=== PATIENT | male | born 1960 | race Caucasian/White ===

== ENCOUNTER → 2016-11-27 | Outpatient (REF) ==
[~2016-11-27] MED LIST: ALBU17IN2 INH; FLON0.054; No Historical Meds; PAXI20TA3 PO; TRAZ50TA4 PO; VICO5TAB
== END ==
LOC: M LAB 13:02
PROVIDERS: ATTEND Nurse Practitioner Adult Health
DX: Z02.1 Encounter for pre-employment examination (principal)

== ENCOUNTER 2017-02-21 10:50 | Inpatient (IN) | payer OTHER ==
[~2017-02-21] VITALS: Ht 195.6 cm; Wt 90.0 kg
[2017-02-21] MEDS ORDERED: PAXI30TA11 PO (11:22)
[2017-02-21] MEDS ORDERED: WELL100T2 PO (11:22)
[2017-02-21] MEDS ORDERED: NS 1,000 ML IV SCH ×2 (11:22→21:30)
[2017-02-21] MEDS ORDERED: INCR1INH IN (11:22)
[2017-02-21] MEDS ORDERED: BREO1INH3 INH (11:22)
[2017-02-21] MEDS ORDERED: methylPREDNISolone INJ 125 MG/2 ML VIAL (J2930) IV ONE (11:30)
[2017-02-21 11:40] LABS: ABG BASE EXCESS 2.2 (-2.0-2.0); ABG HCO3 29.9 MEQ/L (22.0-26.0); ABG PARTIAL PRESSURE CO2 57.7 mmHg (35.0-45.0); ABG PARTIAL PRESSURE O2 62.8 mmHg (75.0-100.0); ABG STANDARD HCO3 26.3 MEQ/L (22.0-26.0); ABG TOTAL CO2 31.6 MEQ/L (22.0-29.0); ABG pH (ARTERIAL) 7.332 UNITS (7.350-7.450)
[2017-02-21] MEDS: IPRATROPIUM 0.5MG/ALBUTEROL 2.5MG INH SOL UD 3ML (DUONEB)(J7620) NEB PRN ×3 (12:02→12:46)
[2017-02-21 12:03] LABS: BASO % 0.4 % (0.0-1.0); EOS % 0.8 % (0.0-3.0); LARGE UNSTAINED CELL % 2.4 % (0.0-4.0); MEAN CORPUSCULAR HEMOGLOBIN 31.6 pg (27.0-33.0); MEAN CORPUSCULAR HGB CONC 34.2 g/dl (32.0-36.5); MEAN CORPUSCULAR VOLUME 92.4 fl (80.0-96.0); MONO % 10.5 % (0.0-5.0); NEUTROPHILS % 77.9 % (36.0-66.0); PLATELET COUNT, AUTOMATED 283 k/mm3 (150-450); RED CELL DISTRIBUTION WIDTH 13.5 % (11.5-14.5); WHITE BLOOD COUNT 13.6 K/mm3 (4.0-10.0)
[2017-02-21 12:04] LABS: BASO # 0.1 K/mm3 (0.0-0.2); EOS # 0.1 K/mm3 (0.0-0.50); LARGE UNSTAINED CELL # 0.3 K/mm3 (0.0-0.4); LYMPH # 1.1 K/mm3 (1.5-4.5); MONO # 1.4 K/mm3 (0.0-0.8); NEUTROPHILS # 10.6 K/mm3 (1.8-7.7)
--- NOTE | 2017-02-21 12:05 | REP ---
Chest one-view HISTORY: Cough Comparison: 11/05/2010 The lungs are clear. The heart is normal in size. The pulmonary vasculature is normal in appearance. Impression: No acute disease. Signed by Paulino Alvarez MD 02/21/2017 11:58 A
[2017-02-21 12:28] LABS: ANION GAP 5 MEQ/L (8-16); BLOOD UREA NITROGEN 39 MG/DL (7-18); CALCIUM LEVEL 9.4 MG/DL (8.5-10.1); CARBON DIOXIDE LEVEL 34 MEQ/L (21-32); CHLORIDE LEVEL 95 MEQ/L (98-107); CREATININE FOR GFR 0.97 MG/DL (0.70-1.30); GLOMERULAR FILTRATION RATE > 60.0 (>56); GLUCOSE, FASTING 155 MG/DL (70-105); POTASSIUM SERUM 4.4 MEQ/L (3.5-5.1); SODIUM LEVEL 134 MEQ/L (136-145)
[2017-02-21] MEDS ORDERED: ISOVUE-370 76% 100ML VIAL (Q9967) As Ordered ONE (12:59)
[2017-02-21] MEDS ORDERED: ACETAMINOPHEN TAB 650MG DOSE (2X325MG) PO ONE (14:00)
[2017-02-21] MEDS ORDERED: IBUP800T23 PO (15:36)
[2017-02-21] MEDS ORDERED: ACETAMINOPHEN TAB 650MG DOSE (2X325MG) PO PRN (16:15)
--- NOTE | 2017-02-21 16:21 | HPEPDOC ---
General Date of Admission Chief Complaint The patient is a 56-year-old male Presented to the ER with complaints of shortness of breath for the last 4-5 days. History of Present Illness Patient is a 56 year old male with a PMHx of COPD (not on O2), Osteoarthritis and Depression who presented to the ER with SOB x 4-5 days. He notes that he has not had any recent illnesses and has been compliant with his medications. He noticed that over the last 5 days his breathing has worsened from baseline and he gets very short of breath at rest. He reports an increase in sputum production and described it as green without any blood. He reports subjective fevers and chills at home. He has been wheezing continuously and has used his inhaler more frequently without any resolution. He has had COPD exacerbations in the past, almost >1 year ago. He denies any history of intubation. He reports some diarrhea for 1 week, loose / water stools about 2-3 times per day. He denies chest pain, palpitations, abdominal pain, nausea or vomiting, or dysuria. Home Medications Scheduled (Incruse Ellipta) 62.5 Mcg/Inh Inh, 62.5 MCG IN DAILY, (Reported) Bupropion HCl (Wellbutrin Sr) 100 Mg Tab, 100 MG PO BID, (Reported) UNKNOWN IF SR OR NOT, WILL CALL PHARMACY IN THE AM Fluticasone/Vilanterol (Breo Ellipta 200-25 Mcg/INH) 1 Inh Inh, 1 PUFF INH DAILY , (Reported) Paroxetine Hydrochloride (Paxil) 30 Mg Tab, 60 MG PO DAILY, (Reported) Scheduled PRN Albuterol Sulfate (Proventil Hfa) 167 Puff/6.7 Gm Aers, 2 PUFFS INH Q4HP PRN for SHORTNESS OF BREATH, (Reported) Ibuprofen (Ibuprofen) 800 Mg Tab, 800 MG PO BID PRN for PAIN, (Reported) Allergies Coded Allergies: Cat Dander (Unverified Allergy, Unknown, 02/21/17) Cephalosporins (Verified Allergy, Unknown, 01/30/13) Past Medical History Medical History COPD (not on O2), Osteoarthritis and Depression Surgical History Bilateral forearm surgery Right arm surgery Right thumb fracture Right ankle surgery Family History - Non-contributory Social History - Smoker of > 40 years at 1ppd, Social etoh use, Smokes marijuana occasionally - Denies recent travel or sick contacts - Lives in snf - Occupation; unemployed Review of Symptoms Other systems Constitutional: Denies weight loss, change in appetite, or recent trauma Eyes: No visual changes or eye pain Ears, Nose, Throat: Denies nose bleeds, or difficulty swallowing Cardiovascular: Denies chest pain, sweating, or orthopnea Respiratory: Positive cough, wheezing, and shortness of breath GI: Abundio nausea, vomiting, abdominal pain, diarrhea or constipation : Denies pain with urination or frequency Musculoskeletal: Denies joint pain or swelling Neuro / Psych: Denies muscle weakness or sensory loss Skin: No skin rashes noted All other review of systems negative; otherwise stated in history of present illness Vital Signs - Vitals: BP 138/81, HR 108, RR 20, Sat 91%VentiMask, Temp 98.5F - General: Lying in bed, No acute distress, Speaking in full sentences, AAOx3 - HEENT: NC, AT, PERRLA, EOMI - CVS: RRR, +S1S2, - Lungs: Poor inspiratory effort, wheezing positive bilaterally - Abdomen: Soft, Non-distended, Non-tender, + Bowel sounds x 4 - Extremities: + PPx4, No lower extremity edema, No calf tenderness - Neuro: No focal motor or sensory deficit - Skin: No visible rashes Laboratory Data Labs 24H Laboratory Tests 2 02/21/17 11:30: Blood Gas Bicarbonate Standard 26.3H, Arterial Blood pH 7.332L, Arterial Blood Partial Pressure CO2 57.7H, Arterial Blood Partial Pressure O2 62.8L, Arterial Blood Total CO2 31.6H, Arterial Blood HCO3 29.9H, Arterial Blood Base Excess 2.2H, Arterial Blood Oxygen Saturation 90.9L 02/21/17 11:49: White Blood Count 13.6H, Red Blood Count 5.24, Hemoglobin 16.6, Hematocrit 48.5 , Mean Corpuscular Volume 92.4, Mean Corpuscular Hemoglobin 31.6, Mean Corpuscular Hemoglobin Concent 34.2, Red Cell Distribution Width 13.5, Platelet Count 283, Neutrophils (%) (Auto) 77.9H, Lymphocytes (%) (Auto) 8.0L, Monocytes (%) (Auto) 10.5H, Eosinophils (%) (Auto) 0.8, Basophils (%) (Auto) 0.4, Neutrophils # (Auto) 10.6H, Lymphocytes # (Auto) 1.1L, Monocytes # (Auto) 1.4H, Eosinophils # (Auto) 0.1, Basophils # (Auto) 0.1, Large Unclassified Cells % 2.4 , Large Unclassified Cells # 0.3, D-Dimer, Quantitative 870.6H, Anion Gap 5L, Glomerular Filtration Rate > 60.0, Lactic Acid Level 1.1, Blood Urea Nitrogen 39H, Creatinine 0.97, Sodium Level 134L, Potassium Level 4.4, Chloride Level 95L , Carbon Dioxide Level 34H, Calcium Level 9.4, Total Creatine Kinase 247, Creatine Kinase MB 5.7H, Creatine Kinase MB Relative Index 2.30, Troponin I < 0.02, B-Type Natriuretic Peptide 98.6, Thyroid Stimulating Hormone (TSH) 1.120 CBC/BMP Laboratory Tests 02/21/17 11:49 Red Blood Count 5.24, Mean Corpuscular Volume 92.4, Mean Corpuscular Hemoglobin 31.6, Mean Corpuscular Hemoglobin Concent 34.2, Red Cell Distribution Width 13.5 , Neutrophils (%) (Auto) 77.9 H, Lymphocytes (%) (Auto) 8.0 L, Monocytes (%) ( Auto) 10.5 H, Eosinophils (%) (Auto) 0.8, Basophils (%) (Auto) 0.4, Neutrophils # (Auto) 10.6 H, Lymphocytes # (Auto) 1.1 L, Monocytes # (Auto) 1.4 H, Eosinophils # (Auto) 0.1, Basophils # (Auto) 0.1, Calcium Level 9.4, Total Creatine Kinase 247 Microbiology Microbiology 02/21/17 Blood Culture, Received Pending 02/21/17 Blood Culture, Received Pending 02/21/17 Influenza Virus Type A Antigen - Final, Complete 02/21/17 Influenza Virus Type B Antigen - Final, Complete Plan / VTE VTE Prophylaxis Ordered?: Yes Plan Plan Shortness of breath likely 2/2 acute COPD exacerbation - Presented with SOB, and productive cough for 5 days - Physical reveals no respiratory distress, not using accessory muscles, + wheezing bilaterally - WBC elevated, no elevation in lactic acid - ABG with mild CO2 retention, pH of 7.332 - CXR 02/21: no active disease - CTA 02/21: 2.4cm mass in RUL (increased from prior) - Repeat ABG in AM - s/p Solumedrol 125 and Duoneb in ER - c/w Solumedrol, Duoneb, Advair and will add Levaquin Right upper lobe mass possibly 2/2 malignancy - Awaiting official read on CT scan - will need further evaluation Leukocytosis possibly 2/2 infectious etiology, possibly reactive - No elevation in lactic acid - CXR negative - Will check blood cultures, sputum cultures - c/w Levaquin for now Osteoarthritis - c/w Tylenol PRN Depression - c/w home meds Gastrointestinal prophylaxis - Will start protonix DVT prophylaxis - Will start Lovenox LUAN NG MD Feb 21, 2017 16:21
[2017-02-21] MEDS ORDERED: BUPR50TA PO (16:44)
[2017-02-21] MEDS ORDERED: LevoFLOXacin IV 500 MG in APPROPRIATE DILUENT 1 EA IV SCH (18:00)
[2017-02-21 19:09] VITALS: BP 144/90
[2017-02-21] MEDS: IPRATROPIUM 0.5MG/ALBUTEROL 2.5MG INH SOL UD 3ML (DUONEB)(J7620) NEB SCH (20:00)
[2017-02-21] MEDS: ADVAIR DISKUS 250/50 INH PWD INH SCH (20:22)
[2017-02-21] MEDS: PANTOPRAZOLE 40MG TAB (PROTONIX) PO SCH (21:03)
[2017-02-21] MEDS: buPROPion 100 MG TAB PO SCH (21:04)
[2017-02-21] MEDS: ENOXAPARIN 40 MG/0.4 ML SYRINGE (J1650) SC SCH (21:04)
[2017-02-21] MEDS: methylPREDNISolone INJ 125 MG/2 ML VIAL (J2930) IV SCH (21:04)
[2017-02-21 23:58] VITALS: BP 142/89
[2017-02-22] VITALS (7 sets, daily range): BP systolic 118–173; BP diastolic 67–93; O2SAT 92
[2017-02-22] MEDS: IPRATROPIUM 0.5MG/ALBUTEROL 2.5MG INH SOL UD 3ML (DUONEB)(J7620) NEB SCH ×4 (00:39→20:00)
[2017-02-22] MEDS: methylPREDNISolone INJ 125 MG/2 ML VIAL (J2930) IV SCH ×3 (04:30→20:27)
[2017-02-22 05:29] LABS: BASO % 0.2 % (0.0-1.0); EOS % 0.3 % (0.0-3.0); LARGE UNSTAINED CELL # 0.2 K/mm3 (0.0-0.4); LARGE UNSTAINED CELL % 1.7 % (0.0-4.0); LYMPH # 0.8 K/mm3 (1.5-4.5); LYMPH % 7.2 % (24.0-44.0); MEAN CORPUSCULAR HEMOGLOBIN 31.2 pg (27.0-33.0); MEAN CORPUSCULAR HGB CONC 33.7 g/dl (32.0-36.5); MEAN CORPUSCULAR VOLUME 92.7 fl (80.0-96.0); MONO # 0.7 K/mm3 (0.0-0.8); MONO % 5.9 % (0.0-5.0); NEUTROPHILS # 9.8 K/mm3 (1.8-7.7); NEUTROPHILS % 84.8 % (36.0-66.0); PLATELET COUNT, AUTOMATED 306 k/mm3 (150-450); RED CELL DISTRIBUTION WIDTH 13.5 % (11.5-14.5); WHITE BLOOD COUNT 11.6 K/mm3 (4.0-10.0)
[2017-02-22 05:50] LABS: ALBUMIN 3.1 GM/DL (3.2-5.2); ALBUMIN/GLOBULIN RATIO 0.66 (1.00-1.93); ALKALINE PHOSPHATASE 95 U/L (45-117); ALT/SGPT 20 U/L (12-78); ANION GAP 5 MEQ/L (8-16); AST/SGOT 21 U/L (15-37); BILIRUBIN,TOTAL 0.3 MG/DL (0.2-1.0); BLOOD UREA NITROGEN 22 MG/DL (7-18); CALCIUM LEVEL 8.2 MG/DL (8.5-10.1); CARBON DIOXIDE LEVEL 33 MEQ/L (21-32); CHLORIDE LEVEL 96 MEQ/L (98-107); CREATININE FOR GFR 0.61 MG/DL (0.70-1.30); GLOMERULAR FILTRATION RATE > 60.0 (>56); GLUCOSE, FASTING 139 MG/DL (70-105); MAGNESIUM LEVEL 2.4 MG/DL (1.8-2.4); POTASSIUM SERUM 4.4 MEQ/L (3.5-5.1); SODIUM LEVEL 134 MEQ/L (136-145); TOTAL PROTEIN 7.8 GM/DL (6.4-8.2)
--- NOTE | 2017-02-22 06:15 | ECGEPIP ---
Stationary ECG Study [facility] [place] - ED Test Date: 2017-02-21 Pat Name: BILL TORRES Department: Room: - Gender: M Asset Analyst: : 1960 Requested By: Salinas Cummings Order Number: [id number] Reading MD: Salians West Measurements Intervals [place] Rate: 114 P: 85 VA: 144 QRS: 104 QRSD: 110 T: 42 QT: 325 QTc: 448 Interpretive Statements SINUS TACHYCARDIA RIGHT ATRIAL ENLARGEMENT POSSIBLE LEFT ATRIAL ENLARGEMENT PATTERN CONSISTENT WITH PULMONARY DISEASE INCOMPLETE RIGHT BUNDLE BRANCH BLOCK POSSIBLE RIGHT VENTRICULAR HYPERTROPHY PROBABLE INFERIOR MYOCARDIAL INFARCTION, PROBABLY OLD SIMILAR TO 06/17/15 Electronically Signed On 02-22-2017 6:14:37 EDT by Salinas West
--- NOTE | 2017-02-22 06:28 | REP ---
CT ANGIO CHEST: HISTORY: Hypoxia. CONTRAST: Isovue 370, 75 mL. There are no filling defects in the main , right and left pulmonary arteries or their branches. A spiculated mass 2.4 cm in width is present in the right upper lobe. This is increased in size compared to a previous study. Areas of bronchiectasis are present in the lungs. There is no pleural effusion. Enlarged lymph nodes 1.1 to 1.5 cm are present in the mediastinum. Atherosclerotic calcification is present in the thoracic aorta. Degenerative change is present in the spine. There is an old compression fracture of the T12 vertebral body with minimal height loss. IMPRESSION: 1. There is no pulmonary embolism. 2. There is a 2.4 cm spiculated mass in the right upper lobe that has increased in size compared to a previous study. 3. There are enlarged lymph nodes in the mediastinum. Signed by Paulino Alvarez MD 02/22/2017 08:20 A
[2017-02-22 06:36] LABS: ABG BASE EXCESS 4.5 (-2.0-2.0); ABG HCO3 32.8 MEQ/L (22.0-26.0); ABG PARTIAL PRESSURE O2 73.6 mmHg (75.0-100.0); ABG STANDARD HCO3 28.4 MEQ/L (22.0-26.0); ABG TOTAL CO2 34.8 MEQ/L (22.0-29.0)
[2017-02-22 06:38] LABS: ABG PARTIAL PRESSURE CO2 65.2 mmHg (35.0-45.0)
[2017-02-22] MEDS: ADVAIR DISKUS 250/50 INH PWD INH SCH (08:00)
[2017-02-22] MEDS ORDERED: AZITHROMYCIN INJ 500 MG, VIAL MATE ADAPTER 1 EACH in D5W 250 ML IV SCH (08:00)
[2017-02-22] MEDS: PARoxetine 20 MG TAB PO SCH (08:51)
[2017-02-22] MEDS: buPROPion 100 MG TAB PO SCH ×2 (08:51→20:27)
[2017-02-22] MEDS: PANTOPRAZOLE 40MG TAB (PROTONIX) PO SCH (08:51)
[2017-02-22] MEDS: IPRATROPIUM 0.5MG/ALBUTEROL 2.5MG INH SOL UD 3ML (DUONEB)(J7620) NEB PRN ×2 (09:39→17:31)
[2017-02-22] MEDS: guaiFENesin ER 600 MG TAB PO SCH ×2 (12:29→20:27)
[2017-02-22] MEDS: TIOTROPIUM INHALER/CAPSULE (SPIRIVA) INH SCH (13:15)
[2017-02-22 15:58] LABS: ABG BASE EXCESS 5.3 (-2.0-2.0); ABG HCO3 33.3 MEQ/L (22.0-26.0); ABG PARTIAL PRESSURE CO2 63.7 mmHg (35.0-45.0); ABG PARTIAL PRESSURE O2 78.9 mmHg (75.0-100.0); ABG STANDARD HCO3 29.2 MEQ/L (22.0-26.0); ABG TOTAL CO2 35.2 MEQ/L (22.0-29.0); ABG pH (ARTERIAL) 7.336 UNITS (7.350-7.450)
--- NOTE | 2017-02-22 16:58 | IPN ---
DATE: 02/22/2017 Patient is seen and examined. Admitted yesterday with dyspnea. Continued to have dyspnea overnight with coughing. Denies any fevers or chills, chest pain, pressure or discomfort. VITAL SIGNS: Temperature 98.1, pulse 95, respirations 20, blood pressure 137/85, pulse oximetry 93% on 3 liters nasal cannula. LABORATORY DATA: WBC 11.6, hemoglobin and hematocrit 14.8/44.1, platelets 306. Chemistry: Sodium 134, potassium 4.4, chloride 96, bicarbonate 33, BUN 22, creatinine 0.6, C-reactive protein 11.6. Arterial blood gas (ABG): 7.36, CO2 63.7, paO2 78.9. PHYSICAL EXAMINATION: GENERAL: Patient alert and oriented times three, mildly disheveled, in no acute distress. HEENT: Normocephalic, atraumatic. Pupils are bilaterally equal, round, and reactive. PULMONARY: Poor inspiratory effort, bilateral wheeze. CARDIAC: Regular rate and rhythm, normal S1, S2. ABDOMEN: Soft, nontender, nondistended. Positive bowel sounds. EXTREMITIES: No edema of bilateral lower extremities. ASSESSMENT AND PLAN: This is a 56-year-old male patient with underlying medical history of chronic obstructive pulmonary disease (COPD), not on home oxygen at home, osteoarthritis, depression, presented to the emergency room with shortness of breath for 3-5 days. 1. Acute chronic obstructive pulmonary disease (COPD) exacerbation with hypoxic hypercarbic respiratory failure due to parainfluenza virus. Oxygen supplementation. Arterial blood gas (ABG) is appreciated. Solu-Medrol, Advair, Levaquin for anti-inflammatory, Mucinex. Respiratory panel appreciated. Followup cultures. Spiriva. 2. Right upper lobe mass, possibly secondary to malignancy. CT scan appreciated. Patient will need further evaluation in terms of biopsy once the underlying infection and respiratory distress has resolved. 3. Leukocytosis, possibly secondary to infectious etiology. Followup xrays, cultures. Continue Levaquin. 4. Osteoarthritis. Acetaminophen as needed. 5. Depression. Continue home medication. 6. Deep venous thrombosis (DVT) prophylaxis. Lovenox subcutaneous. DISPOSITION: Pending clinical improvement. Patient will need further workup once respiratory status has improved in terms of pulmonary biopsy.
[2017-02-22] MEDS ORDERED: LevoFLOXacin IV 750 MG in APPROPRIATE DILUENT 1 EA IV SCH (18:00)
[2017-02-22] MEDS: ADVAIR DISKUS 500/50 INH PWD INH SCH (19:41)
[2017-02-22] MEDS: ENOXAPARIN 40 MG/0.4 ML SYRINGE (J1650) SC SCH (20:27)
[2017-02-23] MEDS: IPRATROPIUM 0.5MG/ALBUTEROL 2.5MG INH SOL UD 3ML (DUONEB)(J7620) NEB SCH ×5 (00:11→20:15)
[2017-02-23] MEDS: methylPREDNISolone INJ 125 MG/2 ML VIAL (J2930) IV SCH (03:50)
[2017-02-23 04:00] VITALS: BP 141/69
[2017-02-23 05:39] LABS: BASO % 0.3 % (0.0-1.0); EOS # 0.1 K/mm3 (0.0-0.50); EOS % 0.7 % (0.0-3.0); LARGE UNSTAINED CELL # 0.3 K/mm3 (0.0-0.4); LARGE UNSTAINED CELL % 2.3 % (0.0-4.0); LYMPH # 0.9 K/mm3 (1.5-4.5); LYMPH % 6.9 % (24.0-44.0); MEAN CORPUSCULAR HEMOGLOBIN 32.1 pg (27.0-33.0); MEAN CORPUSCULAR HGB CONC 33.6 g/dl (32.0-36.5); MEAN CORPUSCULAR VOLUME 95.5 fl (80.0-96.0); MONO # 0.7 K/mm3 (0.0-0.8); MONO % 5.4 % (0.0-5.0); NEUTROPHILS # 11.3 K/mm3 (1.8-7.7); NEUTROPHILS % 84.5 % (36.0-66.0); PLATELET COUNT, AUTOMATED 302 k/mm3 (150-450); RED CELL DISTRIBUTION WIDTH 13.5 % (11.5-14.5); WHITE BLOOD COUNT 13.3 K/mm3 (4.0-10.0)
[2017-02-23 06:03] LABS: ALBUMIN/GLOBULIN RATIO 0.68 (1.00-1.93); ALKALINE PHOSPHATASE 90 U/L (45-117); ALT/SGPT 50 U/L (12-78); ANION GAP 3 MEQ/L (8-16); AST/SGOT 46 U/L (15-37); BILIRUBIN,TOTAL 0.3 MG/DL (0.2-1.0); BLOOD UREA NITROGEN 19 MG/DL (7-18); CALCIUM LEVEL 8.5 MG/DL (8.5-10.1); CARBON DIOXIDE LEVEL 33 MEQ/L (21-32); CHLORIDE LEVEL 97 MEQ/L (98-107); CREATININE FOR GFR 0.62 MG/DL (0.70-1.30); GLOMERULAR FILTRATION RATE > 60.0 (>56); GLUCOSE, FASTING 154 MG/DL (70-105); MAGNESIUM LEVEL 2.4 MG/DL (1.8-2.4); POTASSIUM SERUM 4.6 MEQ/L (3.5-5.1); SODIUM LEVEL 133 MEQ/L (136-145); TOTAL PROTEIN 7.4 GM/DL (6.4-8.2)
[2017-02-23] MEDS: TIOTROPIUM INHALER/CAPSULE (SPIRIVA) INH SCH (07:26)
[2017-02-23 07:30] VITALS: BP 144/78
[2017-02-23] MEDS: PARoxetine 20 MG TAB PO SCH (08:47)
[2017-02-23] MEDS: buPROPion 100 MG TAB PO SCH ×2 (08:47→20:06)
[2017-02-23] MEDS: guaiFENesin ER 600 MG TAB PO SCH ×2 (08:47→20:06)
[2017-02-23] MEDS: PANTOPRAZOLE 40MG TAB (PROTONIX) PO SCH (08:47)
[2017-02-23] MEDS: ADVAIR DISKUS 500/50 INH PWD INH SCH ×2 (09:00→20:10)
--- NOTE | 2017-02-23 11:21 | IPN ---
DATE: 02/23/2017 PRIMARY CARE PROVIDER: Alberto Matos DO, [facility]. Jung was seen in PCU. He was admitted with exacerbation of chronic obstructive pulmonary disease (COPD), probable parainfluenza virus. He is a smoker. He has abnormal CT scan suggesting malignancy in the right upper lobe. PHYSICAL EXAMINATION: 144/78, pulse 70, respiratory rate 22, 98% oxygen saturation on 2 liters. GENERAL APPEARANCE: He is resting comfortably in bed. No distress. HEENT: Unremarkable. Decreased breath sounds. Expiratory wheezes in all mccormick. Heart regular rate and rhythm. Abdomen soft, nontender. No peripheral edema. LABORATORIES: I reviewed his office records. He had a spirometry 04/2016, FEV1 1.15, FEV1/FVC ratio of 43%. Today, white count 13.3 on steroids, hemoglobin 14.6, platelets 302, sodium 133, potassium 4.6, BUN 19, creatinine 0.6, glucose 154. Respiratory panel showed parainfluenza virus. IMPRESSION: 1. COPD exacerbation secondary to parainfluenza virus. Continue with nebulized bronchodilator and Solu-Medrol. I do not think there is a bacterial infection and I am stopping his Levaquin. 2. Right upper lobe mass, suspicious for malignancy. I have got a call out for Dr. Matos his primary care provider to make him aware of the abnormality. I have discussed the case with Dr. Swift. I will have her see him while in the hospital to arrange for appropriate followup of this. 3. History of depression. This is stable. 4. Leukocytosis secondary to steroid therapy.
[2017-02-23 12:23] VITALS: BP 147/89
--- NOTE | 2017-02-23 15:02 | CR ---
DATE OF CONSULTATION: 02/23/2017 REASON FOR CONSULTATION: Abnormal chest CT. REQUESTING PROVIDER: Dr. Hank Kendall/hospitalist group. HISTORY OF PRESENT ILLNESS: Jung Pinzon is a patient of Dr. Alberto Matos who presents to the hospital with approximately a year and half worth of shortness of breath, wheezing for the past 7 to 8 years, and 4 days of fever. He states his shortness of breath got significantly worse over the past few days. He states on he felt as if he had fever, spent the whole day in bed. He states his shortness of breath got significantly worse and continued. He had some coughing but no significant mucous production. No hemoptysis. No orthopnea. No paroxysmal nocturnal dyspnea. No weight loss. He has had no pleurisy. He has been on inhaled therapy and carries a diagnosis of chronic obstructive pulmonary disease. He states he is rarely sick with respiratory infections. He states that he has had no sick contacts. He denies any tuberculosis contacts. 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 He had loose stools for about 1 week, two to three times a day, though he denies any chest pain, palpitations, abdominal pain, nausea, vomiting or dysuria. He states that he feels better than when he first came in but is still significantly short of breath. PAST MEDICAL HISTORY: Significant for: 1. COPD. I do not spirometry to quantify the degree of obstructive disease. 2. Major depressive disorder. 3. Cataract surgery. 4. Dental surgery. 5. Bilateral wrist fracture status post repair HOME MEDICATIONS: Include: - Ventolin . - Incruse - Breo - Wellbutrin - Paxil Medications in the hospital include: - Mucinex - Spiriva - Advair 500/50 - Paxil 60 - Lovenox 40 mg subcutaneously daily - DuoNebs every 2 hours and every 6 hours - Protonix 40 mg by mouth daily - Tylenol 650 mg every 4 hours Yesterday, he was on IV antibiotics and steroids, both which have stopped. FAMILY HISTORY: His father and grandfather had emphysema. There is no family history of malignancy. SOCIAL HISTORY: The patient is a smoker. He has an approximately 40 pack-year history of smoking. He currently lives in a skilled nursing house. 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 He states he is "sorting things out." No illicit drug use. No significant alcohol use. He denies recent travel or sick contacts within the home. REVIEW OF SYSTEMS: CONSTITUTIONAL: He denies weight loss. No change in appetite. No recent trauma. No night sweats. He has had fevers, as mentioned above. Eyes: No visual changes, eye pain or uveitis. He denies any photophobia or amaurosis fugax. Ear, nose and throat with no history of epistaxis, difficulty swallowing , tongue swelling. His speech has not changed. He has noticed no neck masses. Cardiovascular with no chest pain, orthopnea, paroxysmal nocturnal dyspnea or palpitations. Denies symptoms of claudication. Respiratory, has wheezing, shortness breath. No pleurisy. Otherwise, as mentioned above. GI: No nausea, vomiting, or abdominal pain. He does have some loose stools, not true diarrhea. No constipation or blood in stool. : No burning or pain with urination. No increased frequency. Neuro: No unilateral weakness, seizure. He did have a headache on admission, which has dissipated. No significant head trauma. Skin: He has noted no rashes or jaundice. No bruising. Hematology/oncology: He has no easy bruising or bleeding. Has not required blood transfusions. Psychiatric: He has some depression and occasional mood swings. No suicidal ideation. No anxiety. Musculoskeletal: He has joint pain. He states he previously had a right ankle injury. He also has right hip pain. Vitals: Temperature is 98.9, pulse is 99, respiratory rate is 22, blood pressure is 147/89, oxygen saturations 90% on room air and 92% on 3 liters. GENERAL: The patient is awake, alert and conversant, able to speak full sentences without dyspnea. HEENT: Sclerae clear and anicteric. He is wearing eyeglasses. Pupils are equal, reactive to light. Mucous membranes are moist. Tongue is midline. NECK: Supple. No tracheal deviation or mass. No elevated jugular venous pressure. No thyromegaly. LYMPHATICS: No cervical, supraclavicular, or axillary adenopathy. CARDIOVASCULAR: Regular S1, S2 without audible murmur, rub or gallop. No elevated jugular venous pressure. No peripheral edema. PMI is nondisplaced. PULMONARY: He has diffuse expiratory wheeze throughout both lung mccormick. He has some scattered rhonchi that clear with coughing. He has a prolonged expiratory phase. He is using some abdominal muscles for breathing. ABDOMEN: Soft, nontender, nondistended with a reducible umbilical hernia. Normoactive bowel sounds. No masses. EXTREMITIES: No cyanosis, clubbing or edema. MUSCULOSKELETAL: Appears normal muscle tone for stated age. No evidence of joint effusions or recent fracture. EXTREMITIES: No cyanosis, clubbing or edema. He has nicotine stained fingers. NEUROLOGIC: No unilateral weakness, tremor. Extraocular muscles are intact. Pupils are equal, reactive to light. Motor strength appears is normal. LABORATORY EVALUATION: Sodium of 133, potassium 4.6, chloride of 97, bicarbonate of 33, BUN of 19, creatinine of 0.62 with a glucose of 154. Arterial blood gas shows a pH of 7.34, pCO2 of 64, pO2 of 79, hemoglobin of 14.6, hematocrit of 43.6, white blood cell count is 13.3 with 84% neutrophilia and platelet count of 302. There is an elevated D-dimer and therefore a CT angio was performed in the emergency room. The CT angio did not show any significant signs of pulmonary embolism; however, there is a spiculated right upper lobe lesion. This measures approximately 2.4 cm. There are pretracheal nodes measuring from 1.1-1.3 cm. There is a one precarinal node. No significant hilar adenopathy. There are some tree and bud changes in the left lower lobe in the posterior basal segment adjacent to the pleura. IMPRESSION 1. Chest CT with right upper lobe nodule. Differential includes atypical infection, mycobacterial infection and malignancy. I believe this is most likely a malignancy. He has had a negative PPD. I recommend biopsy with electromagnetic navigation. I have requested his CT scan be reformatted in Iologic protocol. At this point in time, however, he is not optimized for surgery. He has significant wheezing and bronchospasm on exam. Therefore, I would continue treatment for his acute respiratory illness and then I will see him as an outpatient and determine his preparedness for biopsy. I believe it is best performed under bronchoscopy with bronchoscopy rather than CT guided due to the location. 2. Chronic obstructive pulmonary disease (COPD) with chronic hypercarbic respiratory failure, evidence of emphysema on chest CT. He has significant bronchospasm. At this point in time, his hypercarbia is compensated; however, he has a significant work of breathing. We will continue a longer slower prednisone taper. 3. Hyponatremia, may be related to his acute pulmonary illness. We will continue to monitor for further hyponatremia. 4. Leukocytosis, likely steroid induced. I agree I do not find any reason for him to be on antibiotics at this point in time. 5. Nicotine dependence. Extensively counseled on need to quit smoking. BARBARA
[2017-02-23] MEDS: predniSONE 10 MG TAB PO SCH (15:03)
[2017-02-23] MEDS: ENOXAPARIN 40 MG/0.4 ML SYRINGE (J1650) SC SCH (20:06)
[2017-02-23 22:00] VITALS: BP 136/85
[2017-02-24] MEDS: IPRATROPIUM 0.5MG/ALBUTEROL 2.5MG INH SOL UD 3ML (DUONEB)(J7620) NEB SCH ×5 (02:00→23:19)
[2017-02-24 06:00] VITALS: BP 134/89
[2017-02-24 07:01] LABS: BASO % 0.4 % (0.0-1.0); EOS # 0.1 K/mm3 (0.0-0.50); EOS % 0.4 % (0.0-3.0); LARGE UNSTAINED CELL # 0.3 K/mm3 (0.0-0.4); LARGE UNSTAINED CELL % 1.9 % (0.0-4.0); LYMPH # 2.3 K/mm3 (1.5-4.5); LYMPH % 14.1 % (24.0-44.0); MEAN CORPUSCULAR HEMOGLOBIN 30.9 pg (27.0-33.0); MEAN CORPUSCULAR HGB CONC 32.7 g/dl (32.0-36.5); MEAN CORPUSCULAR VOLUME 94.5 fl (80.0-96.0); MONO # 1.2 K/mm3 (0.0-0.8); MONO % 8.5 % (0.0-5.0); NEUTROPHILS # 10.8 K/mm3 (1.8-7.7); NEUTROPHILS % 74.8 % (36.0-66.0); PLATELET COUNT, AUTOMATED 327 k/mm3 (150-450); RED CELL DISTRIBUTION WIDTH 13.5 % (11.5-14.5); WHITE BLOOD COUNT 14.4 K/mm3 (4.0-10.0)
[2017-02-24 07:31] LABS: ALBUMIN 2.9 GM/DL (3.2-5.2); ALBUMIN/GLOBULIN RATIO 0.69 (1.00-1.93); ALKALINE PHOSPHATASE 78 U/L (45-117); ALT/SGPT 56 U/L (12-78); ANION GAP 2 MEQ/L (8-16); AST/SGOT 35 U/L (15-37); BILIRUBIN,TOTAL 0.4 MG/DL (0.2-1.0); BLOOD UREA NITROGEN 28 MG/DL (7-18); CALCIUM LEVEL 8.7 MG/DL (8.5-10.1); CARBON DIOXIDE LEVEL 40 MEQ/L (21-32); CHLORIDE LEVEL 100 MEQ/L (98-107); CREATININE FOR GFR 0.68 MG/DL (0.70-1.30); GLOMERULAR FILTRATION RATE > 60.0 (>56); GLUCOSE, FASTING 117 MG/DL (70-105); POTASSIUM SERUM 3.8 MEQ/L (3.5-5.1); SODIUM LEVEL 142 MEQ/L (136-145); TOTAL PROTEIN 7.1 GM/DL (6.4-8.2)
[2017-02-24] MEDS: ADVAIR DISKUS 500/50 INH PWD INH SCH ×2 (07:39→19:56)
[2017-02-24] MEDS: TIOTROPIUM INHALER/CAPSULE (SPIRIVA) INH SCH (07:39)
[2017-02-24] MEDS: predniSONE 10 MG TAB PO SCH (09:19)
[2017-02-24] MEDS: buPROPion 100 MG TAB PO SCH ×2 (09:19→21:19)
[2017-02-24] MEDS: guaiFENesin ER 600 MG TAB PO SCH ×2 (09:19→21:19)
[2017-02-24] MEDS: PARoxetine 20 MG TAB PO SCH (09:19)
[2017-02-24] MEDS: PANTOPRAZOLE 40MG TAB (PROTONIX) PO SCH (09:19)
[2017-02-24 14:00] VITALS: BP 154/89
--- NOTE | 2017-02-24 15:42 | IPN ---
DATE: 02/24/2017 Jung is a little better, less short of breath. He met with Dr. Swift about his lung mass. She is concerned about malignancy and has plans for outpatient followup for this. Denies any hemoptysis. PHYSICAL EXAMINATION: Afebrile and vital signs are stable. LUNGS: Expiratory wheezes better than yesterday. HEART: Regular rate and rhythm. ABDOMEN: Soft, nontender. EXTREMITIES: No peripheral edema. LABORATORY DATA: Laboratories look unremarkable. White count is 14,000 on steroids. IMPRESSION: 1. Exacerbation of chronic obstructive pulmonary disease (COPD), secondary to parainfluenza virus. Continue bronchodilator and steroids. He should be able to be discharged tomorrow. We will check his oxygenation on room air at rest and exertion to see if he requires supplemental oxygen. 2. Right upper lobe mass, suspicious for malignancy. Spoke to Dr. Matos yesterday. Dr. Swift saw him and outpatient followup is planned.
[2017-02-24] MEDS: ENOXAPARIN 40 MG/0.4 ML SYRINGE (J1650) SC SCH (21:20)
[2017-02-24 22:00] VITALS: BP 164/80
[2017-02-25 06:00] VITALS: BP 162/90
[2017-02-25 07:01] LABS: BASO % 0.4 % (0.0-1.0); EOS # 0.1 K/mm3 (0.0-0.50); EOS % 0.5 % (0.0-3.0); LARGE UNSTAINED CELL # 0.2 K/mm3 (0.0-0.4); LARGE UNSTAINED CELL % 1.8 % (0.0-4.0); LYMPH # 3.3 K/mm3 (1.5-4.5); LYMPH % 25.8 % (24.0-44.0); MEAN CORPUSCULAR HEMOGLOBIN 31.2 pg (27.0-33.0); MEAN CORPUSCULAR VOLUME 94.6 fl (80.0-96.0); MONO # 1.2 K/mm3 (0.0-0.8); MONO % 10.1 % (0.0-5.0); NEUTROPHILS # 7.4 K/mm3 (1.8-7.7); NEUTROPHILS % 61.4 % (36.0-66.0); PLATELET COUNT, AUTOMATED 360 k/mm3 (150-450); RED CELL DISTRIBUTION WIDTH 13.6 % (11.5-14.5)
[2017-02-25 07:29] LABS: ALBUMIN 2.9 GM/DL (3.2-5.2); ALBUMIN/GLOBULIN RATIO 0.69 (1.00-1.93); ALKALINE PHOSPHATASE 82 U/L (45-117); ALT/SGPT 57 U/L (12-78); ANION GAP 5 MEQ/L (8-16); AST/SGOT 22 U/L (15-37); BILIRUBIN,TOTAL 0.4 MG/DL (0.2-1.0); BLOOD UREA NITROGEN 29 MG/DL (7-18); CALCIUM LEVEL 8.4 MG/DL (8.5-10.1); CARBON DIOXIDE LEVEL 39 MEQ/L (21-32); CHLORIDE LEVEL 98 MEQ/L (98-107); CREATININE FOR GFR 0.74 MG/DL (0.70-1.30); GLOMERULAR FILTRATION RATE > 60.0 (>56); GLUCOSE, FASTING 96 MG/DL (70-105); POTASSIUM SERUM 3.8 MEQ/L (3.5-5.1); SODIUM LEVEL 142 MEQ/L (136-145); TOTAL PROTEIN 7.1 GM/DL (6.4-8.2)
[2017-02-25] MEDS: IPRATROPIUM 0.5MG/ALBUTEROL 2.5MG INH SOL UD 3ML (DUONEB)(J7620) NEB PRN (07:46)
[2017-02-25] MEDS: TIOTROPIUM INHALER/CAPSULE (SPIRIVA) INH SCH (07:46)
[2017-02-25] MEDS: ADVAIR DISKUS 500/50 INH PWD INH SCH ×2 (07:46→20:39)
[2017-02-25] MEDS: IPRATROPIUM 0.5MG/ALBUTEROL 2.5MG INH SOL UD 3ML (DUONEB)(J7620) NEB SCH ×3 (08:00→20:00)
[2017-02-25] MEDS ORDERED: MOM 30ML SUSPENSION UDC PO PRN (08:15)
--- NOTE | 2017-02-25 08:42 | IPN ---
DATE: 02/25/2017 Jung is seen in [address] [place] [address]. He was hoping that he would go home today but he has significant desaturation and dyspnea on exertion walking in the hallway. He is comfortable at rest. Nursing staff is concerned that he has not had a bowel movement and he says that he does not want anything for this and he will "just deal with it." PHYSICAL EXAMINATION: Systolic blood pressure is 130 to 160. Pulse of 84, respiratory rate 20, 94% oxygen saturation on 2 liters. GENERAL APPEARANCE: He is comfortable at rest. LUNGS: Few wheezes in the bases, otherwise lungs are clear. HEART: Regular rhythm. ABDOMEN: Soft, nontender. EXTREMITIES: No peripheral edema. LABORATORY DATA: White count is 12,000 on steroids. Electrolytes unremarkable. IMPRESSION: 1. Exacerbation of chronic obstructive pulmonary disease (COPD) secondary to parainfluenza virus. On bronchodilator and steroids. Continues to have some desaturation and he got quite dyspneic with minimal exertion so I do not plan to discharge him today. We will see how he feels tomorrow. 2. Right upper lobe mass. Outpatient followup through Dr. Swift advised. 3. Tobacco abuse. The importance of smoking cessation has been discussed. 4. History of depression. Continue with his home medications.
[2017-02-25] MEDS: PARoxetine 20 MG TAB PO SCH (08:58)
[2017-02-25] MEDS: PANTOPRAZOLE 40MG TAB (PROTONIX) PO SCH (08:59)
[2017-02-25] MEDS: guaiFENesin ER 600 MG TAB PO SCH ×2 (08:59→20:57)
[2017-02-25] MEDS: buPROPion 100 MG TAB PO SCH ×2 (08:59→20:57)
[2017-02-25] MEDS: predniSONE 10 MG TAB PO SCH (08:59)
[2017-02-25] MEDS: SENOKOT S TAB PO SCH ×2 (09:00→20:56)
[2017-02-25 14:00] VITALS: BP 135/85
[2017-02-25 20:25] VITALS: BP 144/89
[2017-02-25] MEDS: ENOXAPARIN 40 MG/0.4 ML SYRINGE (J1650) SC SCH (20:57)
[2017-02-26] MEDS: IPRATROPIUM 0.5MG/ALBUTEROL 2.5MG INH SOL UD 3ML (DUONEB)(J7620) NEB SCH ×5 (01:23→23:24)
[2017-02-26 05:14] LABS: BASO # 0.1 K/mm3 (0.0-0.2); BASO % 0.8 % (0.0-1.0); EOS # 0.2 K/mm3 (0.0-0.50); EOS % 1.3 % (0.0-3.0); LARGE UNSTAINED CELL # 0.2 K/mm3 (0.0-0.4); LARGE UNSTAINED CELL % 1.5 % (0.0-4.0); LYMPH # 3.5 K/mm3 (1.5-4.5); MEAN CORPUSCULAR HEMOGLOBIN 30.7 pg (27.0-33.0); MEAN CORPUSCULAR HGB CONC 32.4 g/dl (32.0-36.5); MEAN CORPUSCULAR VOLUME 94.8 fl (80.0-96.0); MONO # 1.1 K/mm3 (0.0-0.8); MONO % 8.4 % (0.0-5.0); NEUTROPHILS # 7.9 K/mm3 (1.8-7.7); PLATELET COUNT, AUTOMATED 393 k/mm3 (150-450); RED CELL DISTRIBUTION WIDTH 13.6 % (11.5-14.5); WHITE BLOOD COUNT 12.8 K/mm3 (4.0-10.0)
[2017-02-26 05:25] VITALS: BP 143/83
[2017-02-26 05:51] LABS: ALBUMIN 2.9 GM/DL (3.2-5.2); ALBUMIN/GLOBULIN RATIO 0.69 (1.00-1.93); ALKALINE PHOSPHATASE 81 U/L (45-117); ALT/SGPT 45 U/L (12-78); ANION GAP 4 MEQ/L (8-16); AST/SGOT 16 U/L (15-37); BILIRUBIN,TOTAL 0.3 MG/DL (0.2-1.0); BLOOD UREA NITROGEN 31 MG/DL (7-18); CALCIUM LEVEL 8.7 MG/DL (8.5-10.1); CARBON DIOXIDE LEVEL 39 MEQ/L (21-32); CHLORIDE LEVEL 100 MEQ/L (98-107); CREATININE FOR GFR 0.65 MG/DL (0.70-1.30); GLOMERULAR FILTRATION RATE > 60.0 (>56); GLUCOSE, FASTING 111 MG/DL (70-105); POTASSIUM SERUM 3.8 MEQ/L (3.5-5.1); SODIUM LEVEL 143 MEQ/L (136-145); TOTAL PROTEIN 7.1 GM/DL (6.4-8.2)
[2017-02-26] MEDS: PANTOPRAZOLE 40MG TAB (PROTONIX) PO SCH (08:13)
[2017-02-26] MEDS: SENOKOT S TAB PO SCH ×2 (08:13→20:04)
[2017-02-26] MEDS: buPROPion 100 MG TAB PO SCH ×2 (08:13→20:03)
[2017-02-26] MEDS: predniSONE 10 MG TAB PO SCH (08:13)
[2017-02-26] MEDS: guaiFENesin ER 600 MG TAB PO SCH ×2 (08:13→20:03)
[2017-02-26] MEDS: PARoxetine 20 MG TAB PO SCH (08:13)
[2017-02-26] MEDS: ADVAIR DISKUS 500/50 INH PWD INH SCH ×2 (08:18→19:55)
[2017-02-26] MEDS: TIOTROPIUM INHALER/CAPSULE (SPIRIVA) INH SCH (08:18)
[2017-02-26 14:00] VITALS: BP 142/83
[2017-02-26] MEDS: ENOXAPARIN 40 MG/0.4 ML SYRINGE (J1650) SC SCH (20:03)
[2017-02-26 22:00] VITALS: BP 144/81
[2017-02-26] MEDS: IPRATROPIUM 0.5MG/ALBUTEROL 2.5MG INH SOL UD 3ML (DUONEB)(J7620) NEB PRN (23:23)
[2017-02-27 06:00] VITALS: BP 121/76
[2017-02-27 06:08] LABS: BASO # 0.1 K/mm3 (0.0-0.2); BASO % 0.4 % (0.0-1.0); EOS # 0.3 K/mm3 (0.0-0.50); EOS % 1.6 % (0.0-3.0); LARGE UNSTAINED CELL # 0.2 K/mm3 (0.0-0.4); LARGE UNSTAINED CELL % 1.2 % (0.0-4.0); LYMPH # 4.3 K/mm3 (1.5-4.5); LYMPH % 21.9 % (24.0-44.0); MEAN CORPUSCULAR HEMOGLOBIN 30.9 pg (27.0-33.0); MEAN CORPUSCULAR HGB CONC 32.7 g/dl (32.0-36.5); MEAN CORPUSCULAR VOLUME 94.6 fl (80.0-96.0); MONO # 1.4 K/mm3 (0.0-0.8); MONO % 7.5 % (0.0-5.0); NEUTROPHILS # 12.6 K/mm3 (1.8-7.7); NEUTROPHILS % 67.4 % (36.0-66.0); PLATELET COUNT, AUTOMATED 456 k/mm3 (150-450); RED CELL DISTRIBUTION WIDTH 13.6 % (11.5-14.5); WHITE BLOOD COUNT 18.6 K/mm3 (4.0-10.0)
[2017-02-27 06:22] LABS: ALBUMIN/GLOBULIN RATIO 0.67 (1.00-1.93); ALKALINE PHOSPHATASE 82 U/L (45-117); ALT/SGPT 44 U/L (12-78); ANION GAP 5 MEQ/L (8-16); AST/SGOT 17 U/L (15-37); BILIRUBIN,TOTAL 0.4 MG/DL (0.2-1.0); BLOOD UREA NITROGEN 31 MG/DL (7-18); CALCIUM LEVEL 8.9 MG/DL (8.5-10.1); CARBON DIOXIDE LEVEL 39 MEQ/L (21-32); CHLORIDE LEVEL 99 MEQ/L (98-107); CREATININE FOR GFR 0.82 MG/DL (0.70-1.30); GLOMERULAR FILTRATION RATE > 60.0 (>56); GLUCOSE, FASTING 115 MG/DL (70-105); POTASSIUM SERUM 3.6 MEQ/L (3.5-5.1); SODIUM LEVEL 143 MEQ/L (136-145); TOTAL PROTEIN 7.5 GM/DL (6.4-8.2)
[2017-02-27] MEDS: IPRATROPIUM 0.5MG/ALBUTEROL 2.5MG INH SOL UD 3ML (DUONEB)(J7620) NEB SCH ×3 (08:00→19:45)
[2017-02-27] MEDS: TIOTROPIUM INHALER/CAPSULE (SPIRIVA) INH SCH (08:32)
[2017-02-27] MEDS: ADVAIR DISKUS 500/50 INH PWD INH SCH ×2 (08:40→19:45)
[2017-02-27] MEDS: predniSONE 10 MG TAB PO SCH (09:26)
[2017-02-27] MEDS: PANTOPRAZOLE 40MG TAB (PROTONIX) PO SCH (09:26)
[2017-02-27] MEDS: SENOKOT S TAB PO SCH ×3 (09:27→20:16)
[2017-02-27] MEDS: buPROPion 100 MG TAB PO SCH ×2 (09:27→20:16)
[2017-02-27] MEDS: PARoxetine 20 MG TAB PO SCH (09:27)
[2017-02-27] MEDS: guaiFENesin ER 600 MG TAB PO SCH ×2 (09:27→20:16)
[2017-02-27 10:00] VITALS: BP 142/90
--- NOTE | 2017-02-27 12:12 | IPN ---
DATE: 02/27/2017 Jung feels a little less short of breath. He feels he is coughing his sputum up a little better. He has been slow to progress, but is slowly better every day. PHYSICAL EXAMINATION: Vital signs stable. Lungs: Expiratory wheezes all mccormick. Heart: Regular rhythm. Abdomen: Soft, nontender. No peripheral edema. LABORATORY: White count is 18,000 on steroids. Electrolytes unremarkable. IMPRESSION: Exacerbation of chronic obstructive pulmonary disease (COPD) secondary to parainfluenza virus, on bronchodilator and steroids. Will see how he walks tomorrow without his oxygen.
[2017-02-27 14:00] VITALS: BP 132/77
[2017-02-27] MEDS: ENOXAPARIN 40 MG/0.4 ML SYRINGE (J1650) SC SCH (20:16)
[2017-02-27 20:55] VITALS: BP 150/89
[2017-02-28] MEDS: IPRATROPIUM 0.5MG/ALBUTEROL 2.5MG INH SOL UD 3ML (DUONEB)(J7620) NEB SCH ×4 (02:18→20:00)
[2017-02-28 05:40] VITALS: BP 140/87
[2017-02-28 05:47] LABS: BASO # 0.1 K/mm3 (0.0-0.2); BASO % 0.4 % (0.0-1.0); EOS # 0.4 K/mm3 (0.0-0.50); LARGE UNSTAINED CELL # 0.2 K/mm3 (0.0-0.4); LARGE UNSTAINED CELL % 1.2 % (0.0-4.0); LYMPH # 3.8 K/mm3 (1.5-4.5); LYMPH % 20.6 % (24.0-44.0); MEAN CORPUSCULAR HGB CONC 32.6 g/dl (32.0-36.5); MEAN CORPUSCULAR VOLUME 94.9 fl (80.0-96.0); MONO % 5.8 % (0.0-5.0); NEUTROPHILS # 12.1 K/mm3 (1.8-7.7); NEUTROPHILS % 69.9 % (36.0-66.0); PLATELET COUNT, AUTOMATED 465 k/mm3 (150-450); RED CELL DISTRIBUTION WIDTH 13.8 % (11.5-14.5); WHITE BLOOD COUNT 17.4 K/mm3 (4.0-10.0)
[2017-02-28 06:11] LABS: ALBUMIN 2.8 GM/DL (3.2-5.2); ALBUMIN/GLOBULIN RATIO 0.67 (1.00-1.93); ALKALINE PHOSPHATASE 81 U/L (45-117); ALT/SGPT 37 U/L (12-78); ANION GAP 8 MEQ/L (8-16); AST/SGOT 13 U/L (15-37); BILIRUBIN,TOTAL 0.4 MG/DL (0.2-1.0); BLOOD UREA NITROGEN 35 MG/DL (7-18); CALCIUM LEVEL 8.3 MG/DL (8.5-10.1); CARBON DIOXIDE LEVEL 33 MEQ/L (21-32); CHLORIDE LEVEL 102 MEQ/L (98-107); CREATININE FOR GFR 1.05 MG/DL (0.70-1.30); GLOMERULAR FILTRATION RATE > 60.0 (>56); GLUCOSE, FASTING 181 MG/DL (70-105); POTASSIUM SERUM 3.5 MEQ/L (3.5-5.1); SODIUM LEVEL 143 MEQ/L (136-145)
[2017-02-28] MEDS: ADVAIR DISKUS 500/50 INH PWD INH SCH ×2 (07:46→20:12)
[2017-02-28] MEDS: TIOTROPIUM INHALER/CAPSULE (SPIRIVA) INH SCH (07:46)
[2017-02-28] MEDS: PARoxetine 20 MG TAB PO SCH (08:37)
[2017-02-28] MEDS: predniSONE 10 MG TAB PO SCH (08:37)
[2017-02-28] MEDS: PANTOPRAZOLE 40MG TAB (PROTONIX) PO SCH (08:37)
[2017-02-28] MEDS: SENOKOT S TAB PO SCH ×2 (08:37→20:14)
[2017-02-28] MEDS: guaiFENesin ER 600 MG TAB PO SCH ×2 (08:37→20:14)
[2017-02-28] MEDS: buPROPion 100 MG TAB PO SCH ×2 (08:37→20:14)
--- NOTE | 2017-02-28 12:19 | REP ---
CHEST, TWO VIEWS: HISTORY: COPD. COMPARISON: 02/21/2017 The lung mccormick are hyperexpanded. No acute patchy parenchymal opacities or pleural effusions have developed. There is no change in the osseous structures. IMPRESSION: COPD without evidence of acute cardiopulmonary disease. Signed by Jung Mc DO 02/28/2017 01:32 P
--- NOTE | 2017-02-28 13:45 | IPN ---
DATE: 02/28/2017 Jung is seen in [facility], still has desaturations when he is walking and still feels dyspneic with minimal exertion. His white count has gone up a little bit as well. He is a bit frustrated with his perceived lack of progress. PHYSICAL EXAMINATION: Blood pressure 140/87, pulse of 114, respiratory rate 18, 92% oxygen saturation on 1 liter. General Appearance: He is lying in bed. His lungs have expiratory wheezes all mccormick. Heart: Regular rhythm. Abdomen: Soft, nontender. No peripheral edema. LABORATORY: White count 17.4, hemoglobin 15, platelets 465. Electrolytes look unremarkable. IMPRESSION: 1. Exacerbation of chronic obstructive pulmonary disease (COPD) secondary to parainfluenza virus. I am going to repeat his chest x-ray, continue his prednisone, Advair, Spiriva, nebulized bronchodilator. I think his leukocytosis is from his steroids. chest x-ray. Will add an antibiotic. 2. Right upper lobe. Suspicious for malignancy. Outpatient workup planned. 3. History of depression, stable on current dose of Paxil.
[2017-02-28 14:00] VITALS: BP 144/91
[2017-02-28] MEDS: ENOXAPARIN 40 MG/0.4 ML SYRINGE (J1650) SC SCH (20:14)
[2017-02-28 22:00] VITALS: BP 130/87
[2017-03-01] MEDS: IPRATROPIUM 0.5MG/ALBUTEROL 2.5MG INH SOL UD 3ML (DUONEB)(J7620) NEB SCH ×4 (01:58→20:00)
[2017-03-01 05:37] VITALS: BP 135/78
[2017-03-01] MEDS: ADVAIR DISKUS 500/50 INH PWD INH SCH ×2 (08:20→20:09)
[2017-03-01] MEDS: TIOTROPIUM INHALER/CAPSULE (SPIRIVA) INH SCH (08:20)
[2017-03-01] MEDS: SENOKOT S TAB PO SCH ×2 (09:30→21:00)
[2017-03-01] MEDS: PARoxetine 20 MG TAB PO SCH (09:30)
[2017-03-01] MEDS: predniSONE 10 MG TAB PO SCH (09:30)
[2017-03-01] MEDS: buPROPion 100 MG TAB PO SCH ×2 (09:30→20:03)
[2017-03-01] MEDS: guaiFENesin ER 600 MG TAB PO SCH ×2 (09:30→20:03)
[2017-03-01] MEDS: PANTOPRAZOLE 40MG TAB (PROTONIX) PO SCH (09:30)
--- NOTE | 2017-03-01 11:45 | IPN ---
DATE OF SERVICE: 03/01/2017 I had planned to send Jung home today, but he still feels dyspneic with exertion. Also, has some issues that need to be dealt with at the [facility] residence where he lives before he can be safely discharged (see below). PHYSICAL EXAMINATION: 135/78, pulse of 100, respiratory rate 18, 98% oxygen (O2) saturation on 2 liters. He desaturates to 88% on 2 liters with exertion. General appearance: Chronically ill-appearing. Lungs: Expiratory wheezes, decreased from yesterday. Heart: Regular rate and rhythm. Abdomen: Soft, nontender. No peripheral edema. LABORATORIES: I did not do any laboratory work today. IMPRESSION: Exacerbation of chronic obstructive pulmonary disease (COPD) secondary to parainfluenza virus. He is making slow but steady progress. He is not desaturating as much when he walks. Apparently, he has a slight of stairs he has to climb in his residence. Patient and family services (PFS) is working on moving his living quarters to a ground floor level. Once that is effected, he should be able to be discharged. He would never make it upstairs at this point. Note to PFS: He will need to be discharged on oxygen. This will need to be taken care of before discharge, as well.
[2017-03-01 14:00] VITALS: BP 120/77
[2017-03-01] MEDS: ENOXAPARIN 40 MG/0.4 ML SYRINGE (J1650) SC SCH (20:03)
[2017-03-01 22:00] VITALS: BP 135/82
[2017-03-02] MEDS: IPRATROPIUM 0.5MG/ALBUTEROL 2.5MG INH SOL UD 3ML (DUONEB)(J7620) NEB SCH ×2 (02:00→08:00)
[2017-03-02 06:00] VITALS: BP 137/90
[2017-03-02 06:52] LABS: MEAN CORPUSCULAR HEMOGLOBIN 31.3 pg (27.0-33.0); MEAN CORPUSCULAR HGB CONC 32.3 g/dl (32.0-36.5); MEAN CORPUSCULAR VOLUME 96.7 fl (80.0-96.0); RED CELL DISTRIBUTION WIDTH 13.4 % (11.5-14.5); WHITE BLOOD COUNT 16.8 K/mm3 (4.0-10.0)
[2017-03-02 07:16] LABS: ANION GAP 7 MEQ/L (8-16); BLOOD UREA NITROGEN 28 MG/DL (7-18); CALCIUM LEVEL 8.6 MG/DL (8.5-10.1); CARBON DIOXIDE LEVEL 32 MEQ/L (21-32); CHLORIDE LEVEL 100 MEQ/L (98-107); CREATININE FOR GFR 0.95 MG/DL (0.70-1.30); GLOMERULAR FILTRATION RATE > 60.0 (>56); GLUCOSE, FASTING 160 MG/DL (70-105); POTASSIUM SERUM 3.3 MEQ/L (3.5-5.1); SODIUM LEVEL 139 MEQ/L (136-145)
[2017-03-02] MEDS: PANTOPRAZOLE 40MG TAB (PROTONIX) PO SCH (08:34)
[2017-03-02] MEDS: predniSONE 10 MG TAB PO SCH (08:35)
[2017-03-02] MEDS: buPROPion 100 MG TAB PO SCH (08:35)
[2017-03-02] MEDS: PARoxetine 20 MG TAB PO SCH (08:35)
[2017-03-02] MEDS: SENOKOT S TAB PO SCH (08:35)
[2017-03-02] MEDS: guaiFENesin ER 600 MG TAB PO SCH (08:35)
[2017-03-02] MEDS: ADVAIR DISKUS 500/50 INH PWD INH SCH (08:49)
[2017-03-02] MEDS: TIOTROPIUM INHALER/CAPSULE (SPIRIVA) INH SCH (08:49)
[2017-03-02] MEDS ORDERED: POTASSIUM CHLORIDE 10 MEQ SR TABLET PO ONE (10:45)
[2017-03-02] MEDS ORDERED: PRED10TA PO (12:49)
--- NOTE | 2017-03-02 19:31 | DSES ---
DATE OF ADMISSION: 02/21/2017 DATE OF DISCHARGE: 03/02/2017 PRIMARY CARE PROVIDER: Dr. Dominic Matos PULMONARY JOURNEYMAN MECHANIC: Dr. Swift FINAL DIAGNOSES: Acute chronic obstructive pulmonary disease (COPD) exacerbation secondary to parainfluenza virus. Right upper lobe mass, suspicious for malignancy. Leukocytosis. Osteoarthritis. Depression. HISTORY OF THE PRESENT ILLNESS: This is a 56-year-old male patient with underlying medical history of COPD, not on oxygen at home, osteoarthritis, depression, who presented to the emergency room with shortness of breath for 4-5 days that is worsening. The patient noted that he has not had any recent illness and has been compliant with his medication. He noticed that over the last 5 days, his breathing has worsened from baseline, and he gets very short of breath at rest. He reports increasing sputum production and described it as green without any blood. He reported subjective fever and chills at home and has been wheezing continuously. He has used his inhaler more frequently without any resolution. Subsequently, the patient was admitted to the hospital. CT angiogram was done to rule out pulmonary embolus (PE), which was negative for PE but has found a right upper lobe mass on the CT scan. The patient was initially started on antibiotics, Levaquin along with Mucinex, Solu-Medrol, Advair, nebulizer treatment. Respiratory panel and cultures were obtained. Respiratory panel shows parainfluenza virus. The patient's steroids were progressively tapered. The patient was given oxygen for hypoxia and pulmonology was consulted. Steroid was tapered. Physical therapy was done. Smoking cessation counseling was given. The patient's home medication was continued. The patient currently feels much better, has passed physical therapy, ready for discharge for further care as an outpatient. The patient qualifies for home oxygen with a pulse oximetry on room air of 86% while ambulating and on a liter of 88%, one liter. VITAL SIGNS: Temperature 97.8, pulse 109, respirations 18, blood pressure 137/90, pulse oximetry 91% on 1 liters nasal cannula. LABORATORY: WBC 16.8, hemoglobin and hematocrit 15.7 over 48.6, platelets of 443. Chemistry: Sodium 139, potassium 3.3, chloride 100, bicarbonate 32, BUN 28, creatinine 0.95. DISCHARGE MEDICATIONS: Prednisone 10 mg tablet, three tablets by mouth daily for 3 days, two tablets by mouth daily for 3 days, then one tablet by mouth daily for 3 days, then stop. Patient home medications of Proventil inhalation as needed, bupropion 100 mg by mouth twice a day, Breo inhalation daily, ibuprofen 800 mg by mouth twice a day as needed, Ellipta inhalation daily and Paxil 60 mg by mouth daily will continue DISCHARGE INSTRUCTIONS: The patient was instructed to followup with primary care provider in 7days, followup with small business banking officer in 10 days and for further arrangement for lung biopsy once the acute infection has resolved. Oxygen supplementation has been arranged for home.
== END 2017-03-02 14:29 | disposition home or self-care (01) | DRG 140 ==
LOC: M ED 11:21 → M ED INP 16:04 → M PCU 18:55 → M MSPAV 02-23 12:19
PROVIDERS: ADMIT Internal Medicine; ATTEND Hospitalist
DX: J44.1 Chronic obstructive pulmonary disease with (acute) exacerbation (principal); J96.01 Acute respiratory failure with hypoxia; J96.02 Acute respiratory failure with hypercapnia; E87.1 Hypo-osmolality and hyponatremia; B34.8 Other viral infections of unspecified site; M19.90 Unspecified osteoarthritis, unspecified site; F32.9 Major depressive disorder, single episode, unspecified; D72.829 Elevated white blood cell count, unspecified; R91.8 Other nonspecific abnormal finding of lung field; J30.81 Allergic rhinitis due to animal (cat) (dog) hair and dander; F17.210 Nicotine dependence, cigarettes, uncomplicated; Z79.899 Other long term (current) drug therapy; Z88.1 Allergy status to other antibiotic agents; Z83.6 Family history of other diseases of the respiratory system

== ENCOUNTER → 2017-03-30 | Outpatient (CLI) | payer OTHER ==
[~2017-03-30] MED LIST changes: +BREO1INH3 INH; +BUPR50TA PO; +IBUP800T23 PO; +INCR1INH IN; +MUCI600T34 PO; +PAXI30TA11 PO; +PRED10TA; +PRED10TA PO; +WELL100T2 PO
--- NOTE | 2017-03-30 08:11 | PFTRPT ---
Tech: ScottFabio JAMES RRT Age: 56 Sex: Male Race: Height: 77.00 Inches Weight: 200.00 Lbs BSA: 2.24 Diagnosis: J43.1 TECH NOTES: Test meets the ATS standards for acceptability and repeatability. On DLCO maneuver, the SVC > IVC. The patient was given four puffs of albuterol for postbronchodilator. PULMONARY FUNCTION REPORT ORDERING PROVIDER: Raj Swift DO DATE OF SERVICE: 03/30/17 SPIROMETRY: Pre and post bronchodilator study of excellent technical quality. The forced vital capacity is reduced. The FEV1 is out of proportion. The obstructive index is, therefore, reduced. FLOW VOLUME LOOP: The expiratory limb of the flow volume loop is consistent with significant flow rate limitation. Only borderline bronchodilator response is identified. LUNG VOLUMES: The total lung capacity is elevated, as is the residual volume, suggesting significant underlying concomitant air trapping. DIFFUSION CAPACITY: The patient had some difficulties with the diffusion capacity measurement, but the diffusion capacity is still severely reduced. HEMOGLOBIN: The hemoglobin is acceptable at 15.5. AIRWAY MECHANICS: Airways resistance is elevated with a concomitant decrease in airway conductance. IMPRESSION: Severe obstructive ventilatory impairment with underlying air trapping and diffusion capacity impairment, suggesting emphysema. Borderline bronchodilator response. Please correlate clinically. MTDD
== END ==
LOC: M CARPUL 07:30
PROVIDERS: ATTEND Internal Medicine Pulmonary Disease
DX: J43.1 Panlobular emphysema (principal)

== ENCOUNTER → 2017-04-05 | Day surgery (SDC) | payer OTHER ==
[~2017-04-05] VITALS: Ht 195.6 cm; Wt 90.7 kg
[~2017-04-05] MED LIST changes: +EPINEPHrine 1MG/10ML SYRINGE 1.5IN As Ordered ONE; +LIDOCAINE 1% MDV 20ML VIAL As Ordered ONE; +LIDOCAINE 1% SDV INJ 30 ML VIAL As Ordered ONE; +LIDOCAINE 2% INJ 100 MG/5 ML SDV (FOR ANES.) As Ordered ONE; +LR 1,000 ML IV ONE; +LR 1,000 ML IV SCH; +MIDAZOLAM INJ 2 MG/2 ML VIAL (J2250) As Ordered ONE; +ONDANSETRON 4MG/2ML VIAL (J2405) As Ordered ONE; +ONDANSETRON 4MG/2ML VIAL (J2405) IV PRN; +PERCOCET 5MG/325MG TAB PO PRN; +PHENYLephrine HCL 500 MCG/5 ML (100MCG/ML) SYRINGE (J2370) As Ordered ONE; +PROPOFOL 200 MG/20 ML VIAL As Ordered ONE; +ROCURONIUM BROMIDE 50 MG/5 ML VIAL As Ordered ONE; +THROMBIN SOLN 20,000 UNITS KIT As Ordered ONE; +dexameTHASONE 4 MG/ML 1ML VIAL (J1100) As Ordered ONE; +ePHEDrine SULFATE 25 MG/5 ML(5MG/ML) SYRINGE As Ordered ONE; +fentaNYL 100 MCG/2 ML INJECTION (J3010) As Ordered ONE; +fentaNYL 100 MCG/2 ML INJECTION (J3010) IV PRN
--- NOTE | 2017-04-05 09:14 | RO ---
DATE OF PROCEDURE: 04/05/2017 PREOPERATIVE DIAGNOSES: Right upper lobe lesion, abnormal chest CT. POSTOPERATIVE DIAGNOSES: Right upper lobe lesion, abnormal chest CT. FINDINGS: Smokers airway. PROCEDURE: Bronchoscopy with electromagnetic navigation and fiducial marker placement. SURGEON: Dr. Raj Swift. SET OFF BLOCKER: None. ANESTHESIA: General. ESTIMATED BLOOD LOSS: None. SPECIMENS OBTAINED: 1. Cytobrush right upper lobe. 2. Transbronchial biopsies right upper lobe. 3. Bronchoalveolar lavage right upper lobe. DESCRIPTION OF PROCEDURE: After informed consent was reviewed with the patient in the preoperative area, he was brought back to the OR suite. Time-out was performed with two patient identifiers identifying correct site, correct procedure. General anesthesia was initiated with an 8.0 endotracheal tube. After adequate anesthesia, the case was handed over to me. Time-out was again performed with two patient identifiers identifying correct site, correct procedure. The bronchoscope and endotracheal tube was then lubricated with Cetacaine spray along with some anesthetization of the airway. The Q180 bronchoscope was then inserted into the endotracheal tube. All airways were suctioned. Trachea was midline. Julieta was sharp. Right and left mainstem bronchus was normal. RB1 through 10 was normal without endobronchial lesions except for smokers airway and some mucus. There was some pitting and banding. LB1 through 10 was also normal without endobronchial lesions. Minimal smoker's changes. Bronchoscope was then retracted into the endotracheal tube. The LG guide was placed into the bronchoscope. Automatic registration was performed. Target one was easily navigated to in the right upper lobe. Cytology brushing suggested abnormal cells. Biopsies were taken in this area. Two fiducial markers were placed after 10 transbronchial biopsies were obtained. Bronchoalveolar lavage was then performed and the scope was removed. All procedures were under fluoroscopy. There were no observed complications. All areas were suctioned. There was no evidence of hemorrhage. The patient is extubated and sent to recovery. Postprocedure chest x-ray is pending.
--- NOTE | 2017-04-05 09:50 | REP ---
PORTABLE CHEST: Two AP portable views of the chest are performed. A metallic clip is seen in the right apex with underlying ill-defined opacity. No acute infiltrate is seen bilaterally. Heart and mediastinum are within normal limits. IMPRESSION: No pneumothorax. Metallic clip right apex with underlying ill-defined focal lung opacity. Signed by Dominic Meyer MD 04/05/2017 05:10 P
[2017-04-05 10:50] VITALS: BP 131/74
--- NOTE | 2017-04-08 11:54 | REP ---
C-ARM VIEWS OF THE CHEST: Two C-arm views of the chest are performed during bronchoscopy. A catheter is seen overlying the right upper lobe, and there is a metallic clip in this region as well. 4 minutes 5 seconds fluoroscopy time utilized. Signed by Dominic Meyer MD 04/08/2017 04:25 P
== END | disposition home or self-care (01) ==
LOC: M SDC 05:55
PROVIDERS: ATTEND Internal Medicine Pulmonary Disease
DX: C34.11 Malignant neoplasm of upper lobe, right bronchus or lung (principal); J34.1 Cyst and mucocele of nose and nasal sinus; R05 Cough; Z79.899 Other long term (current) drug therapy; J44.9 Chronic obstructive pulmonary disease, unspecified; R29.898 Other symptoms and signs involving the musculoskeletal system; M12.9 Arthropathy, unspecified; M54.9 Dorsalgia, unspecified; Z96.1 Presence of intraocular lens; Z91.09 Other allergy status, other than to drugs and biological substances; R06.02 Shortness of breath; Z87.81 Personal history of (healed) traumatic fracture

== ENCOUNTER → 2017-04-14 | Outpatient (CLI) | payer OTHER ==
[~2017-04-14] MED LIST changes: -EPINEPHrine 1MG/10ML SYRINGE 1.5IN As Ordered ONE; -LIDOCAINE 1% MDV 20ML VIAL As Ordered ONE; -LIDOCAINE 1% SDV INJ 30 ML VIAL As Ordered ONE; -LIDOCAINE 2% INJ 100 MG/5 ML SDV (FOR ANES.) As Ordered ONE; -LR 1,000 ML IV ONE; -LR 1,000 ML IV SCH; -MIDAZOLAM INJ 2 MG/2 ML VIAL (J2250) As Ordered ONE; -ONDANSETRON 4MG/2ML VIAL (J2405) As Ordered ONE; -ONDANSETRON 4MG/2ML VIAL (J2405) IV PRN; -PERCOCET 5MG/325MG TAB PO PRN; -PHENYLephrine HCL 500 MCG/5 ML (100MCG/ML) SYRINGE (J2370) As Ordered ONE; -PROPOFOL 200 MG/20 ML VIAL As Ordered ONE; -ROCURONIUM BROMIDE 50 MG/5 ML VIAL As Ordered ONE; -THROMBIN SOLN 20,000 UNITS KIT As Ordered ONE; -dexameTHASONE 4 MG/ML 1ML VIAL (J1100) As Ordered ONE; -ePHEDrine SULFATE 25 MG/5 ML(5MG/ML) SYRINGE As Ordered ONE; -fentaNYL 100 MCG/2 ML INJECTION (J3010) As Ordered ONE; -fentaNYL 100 MCG/2 ML INJECTION (J3010) IV PRN
--- NOTE | 2017-04-15 09:12 | REP ---
Whole body PET CT scan: The the patient had a spiculated mass are identified in the upper lobe of the right lung on recent CT of the chest dated 02/21/2017. Enlarged mediastinal nodes were also identified. Whole body PET CT scanning is performed from skull base to the upper thighs. Neck and supraclavicular areas: There are no hypermetabolic foci. Chest: The patients known right upper lobe spiculated lung mass demonstrates a standard uptake value of 4.44, consistent with neoplasm. There are no hypermetabolic mediastinal nodes or hilar nodes. There are no other hypermetabolic foci in the chest. Abdomen, pelvis and upper thighs: There is a focus of hypermetabolic uptake in the pelvis on the right, suspicious for uptake in a normal size right iliac node with a standard uptake value of 7.98. There are no other hypermetabolic foci in the abdomen, pelvis or upper thighs. Impression: The patient's known right lung upper lobe spiculated mass demonstrates hypermetabolic uptake. In addition, there is uptake in a normal size right iliac node. No other hypermetabolic foci are identified. The study is performed with 10 mCi of F 18 F D G. Signed by Dominic Johnson MD 04/15/2017 09:04 A
== END ==
LOC: M PLARAD 09:16
PROVIDERS: ATTEND Internal Medicine Pulmonary Disease
DX: C34.90 Malignant neoplasm of unspecified part of unspecified bronchus or lung (principal)

== ENCOUNTER → 2017-05-28 | Outpatient (REF) | payer OTHER ==
[~2017-05-28] MED LIST changes: +IBUP1TAB7 PO; -IBUP800T23 PO; -MUCI600T34 PO; +MUCI600T37 PO; +PAXI20TA29 PO; -PAXI20TA3 PO; -PRED10TA; -PRED10TA PO; +PRED10TA2; +PRED10TA2 PO; +TRAZ50TA11 PO; -TRAZ50TA4 PO
== END ==
LOC: M SFHCPLAZ 15:07
PROVIDERS: ATTEND Neuromusculoskeletal Medicine & OMM
DX: Z11.9 Encounter for screening for infectious and parasitic diseases, unspecified (principal)

== ENCOUNTER → 2017-06-03 | Outpatient (CLI) | payer OTHER ==
--- NOTE | 2017-06-03 17:02 | REP ---
MRI BRAIN WITHOUT AND WITH CONTRAST: HISTORY: Lung carcinoma. CONTRAST: ProHance 18 mL. Several punctate areas of increased signal intensity on T2-weighted images are present in the periventricular, subcortical white matter and slime. This represents small vessel ischemic disease. There is no intraparenchymal hemorrhage, infarct, mass or midline shift. There is no abnormal enhancement. The ventricular system is normal in appearance. The cortical sulci at the vertex are dilated consistent with minimal volume loss. There is no extracerebral collection. Minimal mucosal thickening is present in the right maxillary sinus. IMPRESSION: 1. Minimal small vessel ischemic disease. 2. Minimal volume loss. Signed by Paulino Alvarez MD 06/03/2017 05:14 P
== END ==
LOC: M RAD 15:06
PROVIDERS: ATTEND Internal Medicine Medical Oncology
DX: C34.90 Malignant neoplasm of unspecified part of unspecified bronchus or lung (principal)
CPT/HCPCS: 70553; A9576

== ENCOUNTER → 2017-06-13 | Outpatient (CLI) | payer OTHER | LOC: M LAB 11:40 | PROVIDERS: ATTEND Neuromusculoskeletal Medicine & OMM | DX: Z11.4 Encounter for screening for human immunodeficiency virus [HIV] (principal) ==

== ENCOUNTER → 2017-06-23 | Outpatient (CLI) | payer OTHER ==
--- NOTE | 2017-06-23 15:45 | REP ---
PET/CT: History: Restaging lung carcinoma. Post-treatment non-small cell lung carcinoma. Adenocarcinoma right upper lobe. The patient is status post stereotactic radio surgery for right upper lobe spiculated lesion 2.4 cm. Comparisons: Comparison PET-CT study April 14, 2017. Comparison CT scan of the chest February 21, 2017. TECHNIQUE: 49 minutes following the intravenous injection of a 9.7 mCi dose of F-18 FDG, three-dimensional PET scintigraphy is acquired from the skull base to the proximal thighs. Triplanar noncontrast CT scanning is acquired through the same anatomic range for attenuation correction, and image registration with scan parameters optimized to minimize radiation exposure to the patient. PET scintigraphy and CT datasets were fused and displayed on a workstation with multiplanar and projection display capability. PET/CT Findings: There is some mild residual hypermetabolic uptake in the spiculated right upper lobe lesion. Maximum standard uptake value today is 2.92. Previously, this was 4.44. The lesion appears somewhat smaller. 2.1 cm transverse dimension compared to 2.4 cm previously. There is a new hypermetabolic vitaly focus in the right anterosuperior hilum. Maximum standard uptake value within this is 4.2. This lesion measures 1.4 cm in diameter. In addition, there is a 1.1 cm precarinal lymph node, which now shows minimally hypermetabolic uptake, maximum standard uptake value 2.5. No other hilar or mediastinal hypermetabolic focus is seen. There is no visible adrenal hypermetabolic focus. In the abdomen and pelvis, there is normal FDG distribution to the liver, spleen, gastrointestinal, and genitourinary tracts. No abnormal vitaly uptake is seen in either iliac region. There is some right ureteral uptake noted today. This is a normal finding. No abnormal lymph node is seen on accompanying CT. Impression: There is evidence of improvement in the treated right upper lobe spiculated density. There are however, two new vitaly foci of mildly increased FDG uptake in the precarinal and in a right hilar lymph node suggesting metastatic lesions. No iliac lymph node or other distant metastatic evidence is seen. Signed by Antonio Lundberg MD 06/23/2017 05:06 P
== END ==
LOC: M PLARAD 06-22 09:36
PROVIDERS: ATTEND Internal Medicine Medical Oncology
DX: C34.90 Malignant neoplasm of unspecified part of unspecified bronchus or lung (principal)
CPT/HCPCS: 78815; A9552

== ENCOUNTER → 2017-08-10 | Outpatient (REF) | payer OTHER ==
[2017-08-10 15:12] LABS: FREE T4 0.99 NG/DL (0.76-1.46)
== END ==
LOC: M LAB REF 13:13
PROVIDERS: ATTEND Internal Medicine Medical Oncology
DX: C34.90 Malignant neoplasm of unspecified part of unspecified bronchus or lung (principal)

== ENCOUNTER → 2017-10-12 | Outpatient (REF) | payer OTHER ==
[2017-10-12 16:03] LABS: FREE T4 0.96 NG/DL (0.76-1.46)
== END ==
LOC: M LAB REF 15:17
PROVIDERS: ATTEND Internal Medicine Medical Oncology
DX: C34.90 Malignant neoplasm of unspecified part of unspecified bronchus or lung (principal)

== ENCOUNTER → 2017-10-22 | Outpatient (CLI) | payer OTHER | LOC: M RAD 09:30 | DX: C34.11 Malignant neoplasm of upper lobe, right bronchus or lung (principal) | CPT/HCPCS: 71250 ==

== ENCOUNTER → 2017-11-01 | Outpatient (REF) | payer OTHER ==
[2017-11-01 21:44] LABS: FREE T4 0.85 NG/DL (0.76-1.46)
== END ==
LOC: M LAB REF 18:15
DX: C34.90 Malignant neoplasm of unspecified part of unspecified bronchus or lung (principal)

== ENCOUNTER → 2017-11-19 | Outpatient (CLI) | payer OTHER | LOC: M RAD 10:27 | DX: M16.11 Unilateral primary osteoarthritis, right hip (principal); M25.751 Osteophyte, right hip | CPT/HCPCS: 73502 ==

== ENCOUNTER → 2017-12-17 | Outpatient (CLI) | payer OTHER ==
[~2017-12-17] MED LIST changes: -ALBU17IN2 INH; -BREO1INH3 INH; -BUPR50TA PO; +CONRAY-43 43% 50ML VIAL (Q9960) As Ordered; -FLON0.054; -IBUP1TAB7 PO; -INCR1INH IN; +LIDOCAINE 1% MDV 20ML VIAL As Ordered; -MUCI600T37 PO; -No Historical Meds; -PAXI20TA29 PO; -PAXI30TA11 PO; -PRED10TA2; -PRED10TA2 PO; -TRAZ50TA11 PO; -VICO5TAB; -WELL100T2 PO; +methylPREDNISolone SUSP 40 MG/ML (DEPO-medrol) VIAL (J1030) As Ordered
== END ==
LOC: M RADPRO 08:18
DX: M16.11 Unilateral primary osteoarthritis, right hip (principal); Z79.899 Other long term (current) drug therapy; Z88.1 Allergy status to other antibiotic agents
CPT/HCPCS: 20610

== ENCOUNTER → 2018-01-03 | Outpatient (REF) | payer OTHER ==
[2018-01-03 19:11] LABS: FREE T4 0.51 NG/DL (0.76-1.46)
== END ==
LOC: M LAB REF 17:27
DX: C34.90 Malignant neoplasm of unspecified part of unspecified bronchus or lung (principal)
CPT/HCPCS: 84443

== ENCOUNTER → 2018-01-14 | Outpatient (CLI) | payer OTHER | LOC: M RAD 09:47 | DX: R91.8 Other nonspecific abnormal finding of lung field (principal) | CPT/HCPCS: 71250 ==

== ENCOUNTER → 2018-03-07 | Outpatient (REF) | payer OTHER ==
[2018-03-07 18:16] LABS: FREE T4 0.78 NG/DL (0.76-1.46)
== END ==
LOC: M LAB REF 16:47
DX: Z79.899 Other long term (current) drug therapy (principal); C34.11 Malignant neoplasm of upper lobe, right bronchus or lung; C77.1 Secondary and unspecified malignant neoplasm of intrathoracic lymph nodes

== ENCOUNTER 2018-04-02 19:04 | Inpatient (IN) | payer OTHER ==
[2018-04-02] MEDS: IPRATROPIUM 0.5MG/ALBUTEROL 2.5MG INH SOL UD 3ML (DUONEB)(J7620) NEB ×3 (20:06→20:31)
[2018-04-02] MEDS: dexameTHASONE 20 MG/5 ML VIAL (J1100) IV (20:31)
[2018-04-02 20:56] LABS: HEMATOCRIT 50.7 % (42.0-52.0); HEMOGLOBIN 15.6 g/dl (13.5-17.5); MEAN CORPUSCULAR HEMOGLOBIN 30.9 pg (27.0-33.0); MEAN CORPUSCULAR HGB CONC 30.8 g/dl (32.0-36.5); MEAN CORPUSCULAR VOLUME 100.4 fl (80.0-96.0); RED BLOOD COUNT 5.05 10^6/uL (4.30-6.10); WHITE BLOOD COUNT 8.8 10^3/uL (4.0-10.0)
[2018-04-02 20:57] LABS: BASO % 0.2 % (0.0-1.0); EOS % 0.2 % (0.0-3.0); IMMATURE GRANULOCYTE % 0.1 % (0-3.0); LYMPH # 1.3 10^3/uL (1.5-4.5); LYMPH % 15.1 % (24.0-44.0); MONO % 11.5 % (0.0-5.0); NEUTROPHILS # 6.4 10^3/uL (1.8-7.7); NEUTROPHILS % 72.9 % (36.0-66.0); PLATELET COUNT, AUTOMATED 265 10^3/uL (150-450)
[2018-04-02] MEDS: NS 500 ML IV (21:00)
[2018-04-02 21:11] LABS: LACTIC ACID SEPSIS PROTOCOL 1.1 MMOL/L (0.4-2.0)
[2018-04-02 21:18] LABS: BLOOD UREA NITROGEN 14 MG/DL (7-18); CALCIUM LEVEL 8.9 MG/DL (8.5-10.1); CHLORIDE LEVEL 90 MEQ/L (98-107); FREE THYROXINE INDEX 1.5 % (1.4-3.8); GLOMERULAR FILTRATION RATE > 60.0 (>56); GLUCOSE, FASTING 114 MG/DL (70-100); POTASSIUM SERUM 4.2 MEQ/L (3.5-5.1); SODIUM LEVEL 135 MEQ/L (136-145); T UPTAKE 37 % (33-40); THYROXINE (T4) 4.1 UG/DL (4.5-12.0)
[2018-04-02 21:36] LABS: ABG BASE EXCESS 14.3 (-2.0-2.0); ABG HCO3 43.7 MEQ/L (22.0-26.0); ABG O2 SATURATION 93.4 % (95.0-99.0); ABG PARTIAL PRESSURE O2 61.8 mmHg (75.0-100.0); ABG STANDARD HCO3 38.2 MEQ/L (22.0-26.0); ABG pH (ARTERIAL) 7.387 UNITS (7.350-7.450); CARBON DIOXIDE LEVEL 50 MEQ/L (21-32)
[2018-04-02 21:37] LABS: ABG PARTIAL PRESSURE CO2 74.4 mmHg (35.0-45.0)
[2018-04-03 00:02] LABS: ABG BASE EXCESS 12.8 (-2.0-2.0); ABG HCO3 39.5 MEQ/L (22.0-26.0); ABG O2 SATURATION 94.3 % (95.0-99.0); ABG PARTIAL PRESSURE O2 59.9 mmHg (75.0-100.0); ABG STANDARD HCO3 36.5 MEQ/L (22.0-26.0); ABG TOTAL CO2 41.3 MEQ/L (22.0-29.0); ABG pH (ARTERIAL) 7.459 UNITS (7.350-7.450)
[2018-04-03] MEDS ORDERED: ACETAMINOPHEN TAB 650MG DOSE (2X325MG) PO (01:00)
[2018-04-03] MEDS: NS 1,000 ML IV ×3 (01:37→20:36)
[2018-04-03] MEDS: buPROPion 100 MG TAB PO ×3 (01:37→20:36)
[2018-04-03] MEDS: NICOTINE 21MG/24HR 1 EA TRANSDERMAL TD ×2 (02:09→09:00)
[2018-04-03] MEDS: IPRATROPIUM 0.5MG/ALBUTEROL 2.5MG INH SOL UD 3ML (DUONEB)(J7620) NEB ×5 (03:26→20:00)
[2018-04-03 04:01] LABS: ANION GAP 4 MEQ/L (8-16); BLOOD UREA NITROGEN 16 MG/DL (7-18); CALCIUM LEVEL 8.6 MG/DL (8.5-10.1); CARBON DIOXIDE LEVEL 39 MEQ/L (21-32); CHLORIDE LEVEL 93 MEQ/L (98-107); CREATININE FOR GFR 0.86 MG/DL (0.70-1.30); GLOMERULAR FILTRATION RATE > 60.0 (>56); GLUCOSE, FASTING 200 MG/DL (70-100); POTASSIUM SERUM 4.6 MEQ/L (3.5-5.1); SODIUM LEVEL 136 MEQ/L (136-145)
[2018-04-03] MEDS: methylPREDNISolone INJ 125 MG/2 ML VIAL (J2930) IV (04:27)
[2018-04-03] MEDS: LEVOTHYROXINE 50MCG TABLET (0.05MG) PO (05:47)
[2018-04-03 05:56] LABS: ABG HCO3 39.4 MEQ/L (22.0-26.0); ABG O2 SATURATION 92.8 % (95.0-99.0); ABG PARTIAL PRESSURE CO2 55.3 mmHg (35.0-45.0); ABG PARTIAL PRESSURE O2 55.2 mmHg (75.0-100.0); ABG STANDARD HCO3 36.7 MEQ/L (22.0-26.0); ABG TOTAL CO2 41.1 MEQ/L (22.0-29.0); ABG pH (ARTERIAL) 7.471 UNITS (7.350-7.450)
[2018-04-03 07:12] LABS: BASO % 0.1 % (0.0-1.0); HEMOGLOBIN 15.8 g/dl (13.5-17.5); IMMATURE GRANULOCYTE % 0.4 % (0-3.0); LYMPH # 0.5 10^3/uL (1.5-4.5); LYMPH % 5.7 % (24.0-44.0); MEAN CORPUSCULAR HEMOGLOBIN 30.7 pg (27.0-33.0); MEAN CORPUSCULAR VOLUME 99.2 fl (80.0-96.0); MONO # 0.1 10^3/uL (0.0-0.8); NEUTROPHILS # 7.5 10^3/uL (1.8-7.7); NEUTROPHILS % 92.8 % (36.0-66.0); PLATELET COUNT, AUTOMATED 283 10^3/uL (150-450); RED BLOOD COUNT 5.14 10^6/uL (4.30-6.10); RED CELL DISTRIBUTION WIDTH 14.9 % (11.5-14.5); WHITE BLOOD COUNT 8.1 10^3/uL (4.0-10.0)
[2018-04-03] MEDS: FORMOTEROL FUMARATE 20 MCG/2 ML INHALATION SOLUTION (PERFOROMIST) INH ×2 (08:00→20:05)
[2018-04-03] MEDS: TIOTROPIUM INHALER/CAPSULE (SPIRIVA) INH (08:20)
[2018-04-03] MEDS: SYMBICORT 160/4.5MCG INHALER 6GM INH ×2 (08:20→20:06)
[2018-04-03] MEDS: PARoxetine 10MG TABLET PO (08:28)
[2018-04-03] MEDS: ENOXAPARIN 40 MG/0.4 ML SYRINGE (J1650) SC (08:28)
[2018-04-03] MEDS: predniSONE 20 MG TAB PO (08:28)
[2018-04-03] MEDS: ARIPiprazole 2 MG TAB PO (08:29)
[2018-04-03] MEDS: PANTOPRAZOLE 40MG TAB (PROTONIX) PO (08:29)
[2018-04-03] MEDS: LevoFLOXacin 750 MG TABLET PO (08:29)
[2018-04-04] MEDS: IPRATROPIUM 0.5MG/ALBUTEROL 2.5MG INH SOL UD 3ML (DUONEB)(J7620) NEB ×7 (00:31→23:54)
[2018-04-04 03:41] LABS: BASO % 0.1 % (0.0-1.0); EOS % 0.1 % (0.0-3.0); HEMATOCRIT 42.8 % (42.0-52.0); IMMATURE GRANULOCYTE % 0.5 % (0-3.0); LYMPH # 1.6 10^3/uL (1.5-4.5); LYMPH % 13.7 % (24.0-44.0); MEAN CORPUSCULAR HEMOGLOBIN 30.9 pg (27.0-33.0); MEAN CORPUSCULAR HGB CONC 32.2 g/dl (32.0-36.5); MONO # 1.3 10^3/uL (0.0-0.8); NEUTROPHILS # 8.6 10^3/uL (1.8-7.7); NEUTROPHILS % 74.6 % (36.0-66.0); PLATELET COUNT, AUTOMATED 260 10^3/uL (150-450); RED BLOOD COUNT 4.46 10^6/uL (4.30-6.10); RED CELL DISTRIBUTION WIDTH 15.3 % (11.5-14.5); WHITE BLOOD COUNT 11.5 10^3/uL (4.0-10.0)
[2018-04-04 03:52] LABS: HEMOGLOBIN 13.8 g/dl (13.5-17.5)
[2018-04-04 04:08] LABS: ANION GAP 4 MEQ/L (8-16); BLOOD UREA NITROGEN 17 MG/DL (7-18); CALCIUM LEVEL 8.1 MG/DL (8.5-10.1); CARBON DIOXIDE LEVEL 38 MEQ/L (21-32); CHLORIDE LEVEL 95 MEQ/L (98-107); CREATININE FOR GFR 0.76 MG/DL (0.70-1.30); GLOMERULAR FILTRATION RATE > 60.0 (>56); GLUCOSE, FASTING 108 MG/DL (70-100); POTASSIUM SERUM 4.2 MEQ/L (3.5-5.1); SODIUM LEVEL 137 MEQ/L (136-145)
[2018-04-04] MEDS: LEVOTHYROXINE 50MCG TABLET (0.05MG) PO (05:31)
[2018-04-04] MEDS: NS 1,000 ML IV (05:32)
[2018-04-04] MEDS: FORMOTEROL FUMARATE 20 MCG/2 ML INHALATION SOLUTION (PERFOROMIST) INH ×2 (07:37→19:28)
[2018-04-04] MEDS: PARoxetine 10MG TABLET PO (08:11)
[2018-04-04] MEDS: PANTOPRAZOLE 40MG TAB (PROTONIX) PO (08:12)
[2018-04-04] MEDS: ARIPiprazole 2 MG TAB PO (08:14)
[2018-04-04] MEDS: predniSONE 20 MG TAB PO (08:14)
[2018-04-04] MEDS: LevoFLOXacin 750 MG TABLET PO (08:14)
[2018-04-04] MEDS: ENOXAPARIN 40 MG/0.4 ML SYRINGE (J1650) SC (08:15)
[2018-04-04] MEDS: NICOTINE 21MG/24HR 1 EA TRANSDERMAL TD (08:17)
[2018-04-04] MEDS: buPROPion 100 MG TAB PO ×2 (08:17→21:51)
[2018-04-04 11:16] LABS: ABG BASE EXCESS 10.5 (-2.0-2.0); ABG HCO3 38.2 MEQ/L (22.0-26.0); ABG O2 SATURATION 95.2 % (95.0-99.0); ABG PARTIAL PRESSURE O2 72.3 mmHg (75.0-100.0); ABG STANDARD HCO3 34.2 MEQ/L (22.0-26.0); ABG TOTAL CO2 40.1 MEQ/L (22.0-29.0); ABG pH (ARTERIAL) 7.396 UNITS (7.350-7.450)
[2018-04-04 11:17] LABS: ABG PARTIAL PRESSURE CO2 63.6 mmHg (35.0-45.0)
[2018-04-04] MEDS: BUDESONIDE 0.5 MG/2 ML INHALATION SUSPENSION INH ×2 (11:24→19:28)
[2018-04-05] MEDS: IPRATROPIUM 0.5MG/ALBUTEROL 2.5MG INH SOL UD 3ML (DUONEB)(J7620) NEB ×4 (03:33→16:00)
[2018-04-05 05:09] LABS: BASO % 0.1 % (0.0-1.0); EOS % 0.2 % (0.0-3.0); HEMATOCRIT 45.9 % (42.0-52.0); HEMOGLOBIN 14.5 g/dl (13.5-17.5); IMMATURE GRANULOCYTE % 0.3 % (0-3.0); LYMPH # 2.4 10^3/uL (1.5-4.5); LYMPH % 25.4 % (24.0-44.0); MEAN CORPUSCULAR HEMOGLOBIN 30.5 pg (27.0-33.0); MEAN CORPUSCULAR HGB CONC 31.6 g/dl (32.0-36.5); MEAN CORPUSCULAR VOLUME 96.6 fl (80.0-96.0); MONO % 10.8 % (0.0-5.0); NEUTROPHILS # 5.9 10^3/uL (1.8-7.7); NEUTROPHILS % 63.2 % (36.0-66.0); PLATELET COUNT, AUTOMATED 275 10^3/uL (150-450); RED BLOOD COUNT 4.75 10^6/uL (4.30-6.10); RED CELL DISTRIBUTION WIDTH 15.6 % (11.5-14.5); WHITE BLOOD COUNT 9.4 10^3/uL (4.0-10.0)
[2018-04-05 05:14] LABS: ANION GAP 1 MEQ/L (8-16); BLOOD UREA NITROGEN 16 MG/DL (7-18); CALCIUM LEVEL 8.1 MG/DL (8.5-10.1); CARBON DIOXIDE LEVEL 41 MEQ/L (21-32); CHLORIDE LEVEL 94 MEQ/L (98-107); GLOMERULAR FILTRATION RATE > 60.0 (>56); GLUCOSE, FASTING 79 MG/DL (70-100); POTASSIUM SERUM 3.6 MEQ/L (3.5-5.1); SODIUM LEVEL 136 MEQ/L (136-145)
[2018-04-05] MEDS: LEVOTHYROXINE 50MCG TABLET (0.05MG) PO (05:31)
[2018-04-05] MEDS: BUDESONIDE 0.5 MG/2 ML INHALATION SUSPENSION INH (07:44)
[2018-04-05] MEDS: FORMOTEROL FUMARATE 20 MCG/2 ML INHALATION SOLUTION (PERFOROMIST) INH (07:44)
[2018-04-05 09:08] LABS: MAGNESIUM LEVEL 2.1 MG/DL (1.8-2.4)
[2018-04-05] MEDS: ENOXAPARIN 40 MG/0.4 ML SYRINGE (J1650) SC (09:30)
[2018-04-05] MEDS: NICOTINE 21MG/24HR 1 EA TRANSDERMAL TD (09:30)
[2018-04-05] MEDS: LevoFLOXacin 750 MG TABLET PO (09:31)
[2018-04-05] MEDS: buPROPion 100 MG TAB PO (09:31)
[2018-04-05] MEDS: predniSONE 20 MG TAB PO (09:31)
[2018-04-05] MEDS: ARIPiprazole 2 MG TAB PO (09:31)
[2018-04-05] MEDS: PANTOPRAZOLE 40MG TAB (PROTONIX) PO (09:31)
[2018-04-05] MEDS: PARoxetine 20 MG TAB PO (09:38)
== END 2018-04-05 18:15 | disposition left against medical advice (07) | DRG 133 ==
LOC: M ED INP 04-03 00:53 → M MSPAV 04-05 11:34 → M ED 19:04 → M ICU 04-03 01:57
DX: J96.21 Acute and chronic respiratory failure with hypoxia (principal); G93.41 Metabolic encephalopathy; Z99.81 Dependence on supplemental oxygen; J44.1 Chronic obstructive pulmonary disease with (acute) exacerbation; C34.91 Malignant neoplasm of unspecified part of right bronchus or lung; F17.200 Nicotine dependence, unspecified, uncomplicated; F32.9 Major depressive disorder, single episode, unspecified; E03.9 Hypothyroidism, unspecified; Z79.899 Other long term (current) drug therapy; Z92.3 Personal history of irradiation; J96.22 Acute and chronic respiratory failure with hypercapnia

== ENCOUNTER → 2018-04-18 | Outpatient (REF) | payer OTHER ==
[2018-04-18 19:07] LABS: FREE T4 0.76 NG/DL (0.76-1.46)
== END ==
LOC: M LAB REF 17:21
DX: C34.11 Malignant neoplasm of upper lobe, right bronchus or lung (principal); C77.1 Secondary and unspecified malignant neoplasm of intrathoracic lymph nodes; Z79.899 Other long term (current) drug therapy

== ENCOUNTER → 2018-05-09 | Outpatient (CLI) | payer OTHER ==
[~2018-05-09] MED LIST changes: -CONRAY-43 43% 50ML VIAL (Q9960) As Ordered; +ISOVUE-370 76% 100ML VIAL (Q9967) As Ordered; -LIDOCAINE 1% MDV 20ML VIAL As Ordered; -methylPREDNISolone SUSP 40 MG/ML (DEPO-medrol) VIAL (J1030) As Ordered
== END ==
LOC: M RAD 09:20
DX: C34.90 Malignant neoplasm of unspecified part of unspecified bronchus or lung (principal); J84.9 Interstitial pulmonary disease, unspecified
CPT/HCPCS: Q9967